=== PATIENT | male | born 1940 | race Caucasian/White ===

== ENCOUNTER 2017-06-05 15:04 | Inpatient (IN) ==
[2017-06-05] MEDS ORDERED: (Tiotropium Bromide [Spiriva Respimat] 4 GM) IH PRN (18:34)
[2017-06-05] MEDS ORDERED: Albuterol 2.5 MG/3 ML NEBULIZER IH PRN (18:34)
[2017-06-05] MEDS ORDERED: *HR* Glimepiride 2 MG TABLET PO SCH (21:00)
[2017-06-05] MEDS ORDERED: Torsemide 20 MG TABLET PO SCH (21:00)
[2017-06-05] MEDS: Metoprolol 100 MG TABLET PO SCH (22:24)
[2017-06-05] MEDS: Sulfamethoxazole/Trimeth DS 1 EACH TABLET PO SCH (22:24)
[2017-06-06 05:42] LABS: Basophils % 0.3 %; Eosinophils # 0.3 K/mcL (0.0-0.6); Eosinophils % 3.2 %; Hematocrit 39.1 % (37.5-50.1); Hemoglobin 12.9 g/dL (12.9-16.9); Immature Granulocytes % 0.8 % (0-4); Lymphocytes # 1.4 K/mcL (0.6-4.6); Lymphocytes % 16.2 %; Mean Corpuscular Hemoglobin 28.4 pg (28.0-33.3); Mean Corpuscular Volume 85.9 fL (83.0-100.0); Monocytes # 0.6 K/mcL (0.0-1.3); Monocytes % 6.5 %; Neutrophils # 6.4 K/mcL (1.6-8.9); Platelet Count 179 K/mcL (140-400); Red Blood Count 4.55 M/mcL (4.19-5.50); Red Cell Distribution Width 14.5 % (11.5-14.5)
[2017-06-06 05:55] LABS: Calcium 8.9 mg/dL (8.6-10.8); Potassium 3.5 mEq/L (3.5-4.5); Prothrombin Time 11.1 Seconds (9.4-12.1)
[2017-06-06] MEDS: *HR* Glimepiride 2 MG TABLET PO SCH (09:08)
[2017-06-06] MEDS: Sulfamethoxazole/Trimeth DS 1 EACH TABLET PO SCH ×2 (09:08→22:30)
[2017-06-06] MEDS: Torsemide 20 MG TABLET PO SCH ×2 (09:08→17:49)
[2017-06-06] MEDS: FLUoxetine HCl 10 MG CAPSULE PO SCH (09:08)
[2017-06-06] MEDS: Metoprolol 100 MG TABLET PO SCH ×2 (09:08→22:30)
[2017-06-06] MEDS: Losartan/HCTZ 50-12.5 TABLET PO SCH (09:09)
--- NOTE | 2017-06-06 11:15 | Internal Med History&Physical ---
Date of Encounter: 06/06/17 Time of Encounter: 11:10 Assessment and Plan (1) CVA (cerebral vascular accident) Current visit: Yes Status: Acute Patient's here for rehabilitation after having weakness to the right side. 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 (2) HTN (hypertension) Current visit: Yes Status: Acute Follow closely the blood pressure which is controlled to multiple Qualifiers: Hypertension type: essential hypertension Qualified Code(s): I10 - Essential (primary) hypertension (3) COPD (chronic obstructive pulmonary disease) Current visit: Yes Status: Acute Qualifiers: COPD type: emphysema Emphysema type: panlobular Qualified Code(s): J43.1 - Panlobular emphysema (4) Lumbar stenosis Current visit: No Status: Chronic By history Qualifiers: Qualified Code(s): M48.061 - Spinal stenosis, lumbar region without neurogenic claudication Internal Medicine - H&P: HPI Chief complaint: Patient was transferred here from the acute facility for rehabilitation sec Admitted From: Hospital to Hospital Transfer Plans for Post Hospital Care: Transfer [employer] 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 Storey is a 77 year old male who was transferred to [facility] rehabilitation unit status post CVA. On 1030 patient developed right mild upper extremity lower extremity weakness and presented to [facility] where head CT showed left thalamic hemorrhage. He was then transferred to [facility]. Repeat scan 12 hours was stable and after 24 hours monitor he was transferred to the neurology inpatient service. He was restarted on his home meds including blood pressure medication at OT PT evaluations. It was recommended then that extended-care facility placement be done for rehabilitation. He was started on fluoxetine 10 mg for stroke recovery and mood changes. Apparently at home CPAP and had refused it in the hospital. He will be seen PT OT TR and speech. Past Med Surg Social Fam HX - Past Medical History Medical history: arthritis, COPD, diabetes, dialysis, hyperlipidemia, hypertension Psychiatric history: no psych history - Past Surgical History Surgical History: other - Social History Smoking Status: Former smoker Smokeless Tobacco Status: No Alcohol use: rarely Drug use: none - Family History Mother Living Status: Age at : 66 Cause of : colon cancer Hx Family Cardiac Disorders: Yes Hx Family Cancer: Yes Internal Medicine - H&P: Meds Albuterol Neb [Proventil Neb] 2.5 mg IH Q4HR PRN 03/16/15 [History] Allopurinol [Zyloprim] 300 mg PO BID 03/16/15 [History] Glimepiride [Amaryl] 2 mg PO BID 03/16/15 [History] Losartan/Hydrochlorothiazide [Hyzaar 100-25 Tablet] 1 each PO DAILY 03/16/15 [ History] Metoprolol [Lopressor] 100 mg PO BID 03/16/15 [History] Tiotropium [place] [Spiriva Respimat] 4 gm IH DAILY PRN 03/16/15 [History] 3 Allergy/AdvReac Type Severity Reaction Status Date / Time pioglitazone [From Actos] AdvReac Mild Palpitation Verified 03/16/15 06:43 s All Systems PM: A 10-system review of systems was performed and is negative for pertinent findings except as documented above in the HPI. - Constitutional Constitutional: fever(s), falls, weakness, no anorexia, no chills, no excessive sweating, no fatigue - EENT Eyes: no blurry vision, no change in vision, no decreased night vision, no diplopia, no loss of peripheral vision Additional comments: No visual disturbances noted Ears: as per HPI Nose, mouth and throat: as per HPI, no bleeding gums, no change in voice, no dry mouth, no dysphagia, no facial pain, no lip swelling, no mouth lesions, no mouth pain, no nasal congestion, no neck pain, no nose pain - Breasts Additional comments: Not applicable - Cardiovascular Cardiovascular ROS IM: no chest pain, no claudication, no dyspnea, no dyspnea on exertion - Respiratory Respiratory: no cough, no dyspnea, no hemoptysis, no dyspnea on exertion - Gastrointestinal Gastrointestinal: no abdominal pain, no belching, no bloating, no change in bowel habits, no change in stool character, no constipation, no dyspepsia - Genitourinary Genitourinary ROS male: no difficulty urinating, no dysuria, no flank pain, no genital lesions, no genital pain, no hematuria, no nocturia, no testicular pain - Musculoskeletal Musculoskeletal ROS IM: no arthralgias, no back pain, no deformity, no joint swelling, no myalgias, no numbness - Integumentary Integumentary IM: no erythema, no pruritus, no rash, no sores, no unusual bruising - Neurological Neurological ROS: abnormal gait, focal weakness, lack of coordination, weakness , no numbness, no paresthesias - Psychiatric Psychiatric: as per HPI - Endocrine Endocrine IM: fatigue, no cold intolerance, no deeping of the voice, no excessive sweating, no flushing, no heat intolerance, no polydipsia, no polyphagia, no polyuria - Hematologic/Lymphatic Hematologic/Lymphatic: no easy bleeding, no easy bruising, no lymphadenopathy - Allergic/Immunologic Allergic/Immunologic: no tongue swelling, no throat swelling, no itchy eyes, no seasonal rhinorrhea, no uticaria - Constitutional Vitals: Temp Pulse Resp BP Pulse Ox 98.0 F 73 18 112/72 92 06/06/17 07:26 06/06/17 07:26 06/06/17 07:26 06/06/17 07:26 06/06/17 07:26 - Head Head exam: Present: atraumatic, normal inspection, normocephalic - Neck Neck exam general surgery: Present: supple, trachea midline. Absent: lymphadenopathy - Respiratory Respiratory exam: Present: CTAB. Absent: accessory muscle use, rales, rhonchi, wheezes - Cardiovascular Cardiovascular exam: Present: RRR, +S1, +S2. Absent: diastolic murmur, gallop, rubs, systolic murmur - GI/Abdominal GI/Abdominal exam: Present: normal bowel sounds, soft, no peritoneal signs. Absent: distended, tenderness Internal Med - H&P Results - Labs CBC & Chem 7: 06/06/17 05:25 06/06/17 05:25 Labs: Short CBC 06/06/17 Range/Units 05:25 WBC 8.8 (4.3-11.1) K/mcL Hgb 12.9 (12.9-16.9) g/dL Hct 39.1 (37.5-50.1) % Plt Count 179 (140-400) K/mcL Neutrophils # 6.4 (1.6-8.9) K/mcL BMP 06/06/17 05:25 Sodium 139 Potassium 3.5 Chloride 98 Carbon Dioxide 31 H BUN 52 H Creatinine 1.92 H Glucose 132 H Calcium 8.9 Little bit of chronic renal failure noted - VTE Documentation of Mechanical Device: Graduated compression elastic hosiery
[2017-06-07] MEDS: Torsemide 20 MG TABLET PO SCH ×2 (09:26→17:35)
[2017-06-07] MEDS: *HR* OxyCODONE/APAP 5/325 TABLET PO PRN (09:26)
[2017-06-07] MEDS: Sulfamethoxazole/Trimeth DS 1 EACH TABLET PO SCH ×2 (09:26→21:13)
[2017-06-07] MEDS: *HR* Glimepiride 2 MG TABLET PO SCH (09:26)
[2017-06-07] MEDS: FLUoxetine HCl 10 MG CAPSULE PO SCH (09:26)
[2017-06-07] MEDS: Losartan/HCTZ 50-12.5 TABLET PO SCH (09:26)
[2017-06-07] MEDS: Metoprolol 100 MG TABLET PO SCH ×2 (09:26→21:13)
--- NOTE | 2017-06-07 14:05 | Psychological Evaluation ---
Date of Encounter: 06/07/17 Time of Encounter: 10:00 History of Present Illness History of present illness: Mr. Storey is a 77 year old male who sustained an intrathalamic bleed. Imaging revealed cerebral infarction secondary to trombosis of the right cerebral artery. Past Medical History - Psychiatric History Psychiatric history: Reports: no psych history (PMH includes HTN, COPD and lumbar stenosis. ) Home Medications and Allergies Albuterol Neb [Proventil Neb] 2.5 mg IH Q4HR PRN 03/16/15 [History] Allopurinol [Zyloprim] 300 mg PO BID 03/16/15 [History] Glimepiride [Amaryl] 2 mg PO BID 03/16/15 [History] Losartan/Hydrochlorothiazide [Hyzaar 100-25 Tablet] 1 each PO DAILY 03/16/15 [ History] Metoprolol [Lopressor] 100 mg PO BID 03/16/15 [History] Tiotropium [place] [Spiriva Respimat] 4 gm IH DAILY PRN 03/16/15 [History] 3 Allergy/AdvReac Type Severity Reaction Status Date / Time pioglitazone [From Actos] AdvReac Mild Palpitation Verified 03/16/15 06:43 s Social History - Social History Social History: The patient has been for 57 years. He was formerly employed in [employer] and is now retired. Cognitive/Emotional Assessment - Cognitive Ability Abstract Thinking Ability: No Deficits Noted (The patient was alert and oriented. Recent and remote memories were intact. Reasoning and problem solving appeared adequate for the demands of the rehab setting.) Assessment & Plan - Prognosis Prognosis: Good (The patient apppears well adjusted to the demands of the rehab program. He denies depression. No further intervention is required at this time.)
--- NOTE | 2017-06-07 14:46 | Internal Med Progress Note ---
Date of Encounter: 06/07/17 Time of Encounter: 14:45 - Assessment and plan (1) CVA (cerebral vascular accident) Current Visit: Yes Status: Acute Assessment and plan: Patient's here receiving PT OT TR and speech. 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 (2) HTN (hypertension) Current Visit: Yes Status: Acute Qualifiers: Hypertension type: essential hypertension Qualified Code(s): I10 - Essential (primary) hypertension (3) COPD (chronic obstructive pulmonary disease) Current Visit: Yes Status: Acute Qualifiers: COPD type: emphysema Emphysema type: panlobular Qualified Code(s): J43.1 - Panlobular emphysema (4) Lumbar stenosis Current Visit: No Status: Chronic Assessment and plan: Noted by history Qualifiers: Qualified Code(s): M48.061 - Spinal stenosis, lumbar region without neurogenic claudication - Time Spent With Patient less than 15 minutes - Subjective Interval history: Isaac think is doing rather well. He is cooperating he is alert most of the time and the testing that was done by speech for cognitive went pretty well that along with Dr. De La Torre. - Constitutional Vitals: Temp Pulse Resp BP Pulse Ox 96.9 F L 66 16 140/78 94 06/07/17 07:38 06/07/17 07:38 06/07/17 07:38 06/07/17 07:38 06/07/17 07:38 - Head Head exam: Present: atraumatic, normal inspection, normocephalic - Neck Neck exam general surgery: Present: supple, trachea midline. Absent: lymphadenopathy - Respiratory Respiratory exam: Present: CTAB. Absent: accessory muscle use, rales, rhonchi, wheezes - Cardiovascular Cardiovascular exam: Present: RRR, +S1, +S2. Absent: diastolic murmur, gallop, rubs, systolic murmur - GI/Abdominal GI/Abdominal exam: Present: normal bowel sounds, soft, no peritoneal signs. Absent: distended, tenderness Internal Medicine: Result - Labs CBC & Chem 7: 06/06/17 05:25 06/06/17 05:25 Labs: renal failure as noted otherwise lab is acceptable - ABG Interpretation ABG results: PT/INR, D-dimer PT 11.1 Seconds (9.4-12.1) 06/06/17 05:25 - VTE Documentation of Mechanical Device: Graduated compression elastic hosiery Consult Discharge Plan - Plan Referrals: Luisana Mejia, PAC [Primary Care Provider] -
[2017-06-07] MEDS ORDERED: MOM Conc 10 ML UD.LIQ PO PRN (17:27)
[2017-06-08] MEDS: *HR* OxyCODONE/APAP 5/325 TABLET PO PRN (02:19)
[2017-06-08] MEDS: Torsemide 20 MG TABLET PO SCH ×2 (09:36→16:58)
[2017-06-08] MEDS: FLUoxetine HCl 10 MG CAPSULE PO SCH (09:36)
[2017-06-08] MEDS: Losartan/HCTZ 50-12.5 TABLET PO SCH (09:37)
[2017-06-08] MEDS: *HR* Glimepiride 2 MG TABLET PO SCH (09:37)
[2017-06-08] MEDS: Sulfamethoxazole/Trimeth DS 1 EACH TABLET PO SCH ×2 (09:37→20:11)
[2017-06-08] MEDS: Metoprolol 100 MG TABLET PO SCH ×2 (09:37→20:13)
[2017-06-09] MEDS: FLUoxetine HCl 10 MG CAPSULE PO SCH (08:34)
[2017-06-09] MEDS: Losartan/HCTZ 50-12.5 TABLET PO SCH (08:35)
[2017-06-09] MEDS: Torsemide 20 MG TABLET PO SCH ×2 (08:35→17:23)
[2017-06-09] MEDS: Metoprolol 100 MG TABLET PO SCH ×2 (08:35→20:47)
[2017-06-09] MEDS: *HR* Glimepiride 2 MG TABLET PO SCH (08:35)
[2017-06-09] MEDS: Sulfamethoxazole/Trimeth DS 1 EACH TABLET PO SCH ×2 (08:35→20:46)
--- NOTE | 2017-06-09 14:21 | Internal Med Progress Note ---
Date of Encounter: 06/15/17 Time of Encounter: 14:19 - Assessment and plan (1) CVA (cerebral vascular accident) Current Visit: Yes Status: Acute Assessment and plan: H has CVA the reason for his rehabilitation. Qualifiers: CVA mechanism: embolism Precerebral and cerebral artery: middle cerebral artery Laterality of affected vessel: right Qualified Code(s): I63.411 - Cerebral infarction due to embolism of right middle cerebral artery (2) HTN (hypertension) Current Visit: Yes Status: Acute Assessment and plan: The pressure is control Qualifiers: Hypertension type: essential hypertension Qualified Code(s): I10 - Essential (primary) hypertension (3) COPD (chronic obstructive pulmonary disease) Current Visit: Yes Status: Acute Assessment and plan: By history currently not a Qualifiers: COPD type: emphysema Emphysema type: panlobular Qualified Code(s): J43.1 - Panlobular emphysema (4) Lumbar stenosis Current Visit: No Status: Chronic Assessment and plan: By history Qualifiers: Qualified Code(s): M48.061 - Spinal stenosis, lumbar region without neurogenic claudication - Time Spent With Patient less than 15 minutes - Subjective Interval history: Isaac think is doing rather well. He is cooperating he is alert most of the time and the testing that was done by speech for cognitive went pretty well that along with Dr. Pinzon - Constitutional Vitals: Temp Pulse Resp BP Pulse Ox 97.7 F 70 16 122/66 90 06/09/17 07:02 06/09/17 07:02 06/09/17 07:02 06/09/17 07:02 06/09/17 07:02 - Head Head exam: Present: atraumatic, normal inspection, normocephalic - Neck Neck exam general surgery: Present: supple, trachea midline. Absent: lymphadenopathy - Respiratory Respiratory exam: Present: CTAB. Absent: accessory muscle use, rales, rhonchi, wheezes - Cardiovascular Cardiovascular exam: Present: RRR, +S1, +S2. Absent: diastolic murmur, gallop, rubs, systolic murmur - GI/Abdominal GI/Abdominal exam: Present: normal bowel sounds, soft, no peritoneal signs. Absent: distended, tenderness Internal Medicine: Result - Labs CBC & Chem 7: 06/12/17 05:15 06/14/17 05:35 Labs: Labs stable - ABG Interpretation ABG results: PT/INR, D-dimer PT 11.1 Seconds (9.4-12.1) 06/06/17 05:25 - VTE Documentation of Mechanical Device: Graduated compression elastic hosiery Consult Discharge Plan - Plan Referrals: Luisana Mejia, PAC [Primary Care Provider] -
--- NOTE | 2017-06-09 14:24 | Internal Med Progress Note ---
Date of Encounter: 06/09/17 Time of Encounter: 14:22 - Assessment and plan (1) CVA (cerebral vascular accident) Current Visit: Yes Status: Acute Assessment and plan: CVA Reason for his admission to the rehabilitation. 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 (2) HTN (hypertension) Current Visit: Yes Status: Acute Assessment and plan: Her pressures well controlled Qualifiers: Hypertension type: essential hypertension Qualified Code(s): I10 - Essential (primary) hypertension (3) COPD (chronic obstructive pulmonary disease) Current Visit: Yes Status: Acute Qualifiers: COPD type: emphysema Emphysema type: panlobular Qualified Code(s): J43.1 - Panlobular emphysema (4) Lumbar stenosis Current Visit: No Status: Chronic Assessment and plan: By history Qualifiers: Qualified Code(s): M48.061 - Spinal stenosis, lumbar region without neurogenic claudication - Time Spent With Patient less than 15 minutes - Subjective Interval history: Patient's only complaint really suspect bowels and so going give him Colace and milk of magnesia at bedtime - Constitutional Vitals: Temp Pulse Resp BP Pulse Ox 97.7 F 70 16 122/66 90 06/09/17 07:02 06/09/17 07:02 06/09/17 07:02 06/09/17 07:02 06/09/17 07:02 - Head Head exam: Present: atraumatic, normal inspection, normocephalic - Neck Neck exam general surgery: Present: supple, trachea midline. Absent: lymphadenopathy - Respiratory Respiratory exam: Present: CTAB. Absent: accessory muscle use, rales, rhonchi, wheezes - Cardiovascular Cardiovascular exam: Present: RRR, +S1, +S2. Absent: diastolic murmur, gallop, rubs, systolic murmur - GI/Abdominal GI/Abdominal exam: Present: normal bowel sounds, soft, no peritoneal signs. Absent: distended, tenderness Internal Medicine: Result - Labs CBC & Chem 7: 06/06/17 05:25 06/06/17 05:25 Labs: Watch renal function but he does have chronic changes. - ABG Interpretation ABG results: PT/INR, D-dimer PT 11.1 Seconds (9.4-12.1) 06/06/17 05:25 - VTE Documentation of Mechanical Device: Graduated compression elastic hosiery Consult Discharge Plan - Plan Referrals: Luisana Mejia, PAC [Primary Care Provider] -
[2017-06-09] MEDS ORDERED: MOM Conc 10 ML UD.LIQ PO PRN (14:42)
[2017-06-09] MEDS ORDERED: MOM Conc 10 ML UD.LIQ PO SCH (21:00)
[2017-06-10] MEDS: Torsemide 20 MG TABLET PO SCH (08:31)
[2017-06-10] MEDS: Losartan/HCTZ 50-12.5 TABLET PO SCH (08:31)
[2017-06-10] MEDS: Metoprolol 100 MG TABLET PO SCH ×2 (08:31→21:54)
[2017-06-10] MEDS: FLUoxetine HCl 10 MG CAPSULE PO SCH (08:31)
[2017-06-10] MEDS: *HR* Glimepiride 2 MG TABLET PO SCH (08:32)
[2017-06-10] MEDS: Sulfamethoxazole/Trimeth DS 1 EACH TABLET PO SCH (08:32)
[2017-06-10 14:18] LABS: Calcium 9.3 mg/dL (8.6-10.8); Potassium 4.4 mEq/L (3.5-4.5)
--- NOTE | 2017-06-10 14:20 | Internal Med Progress Note ---
Date of Encounter: 06/10/17 Time of Encounter: 14:00 - Assessment and plan (1) JORDY (acute kidney injury) Current Visit: Yes Status: Acute Assessment and plan: - Cr around 1 at , but 1.92 on 06/06 here. Will repeat BMP right now and manage accordingly. - Avoid nephrotoxins; will hold torsemide and losartan for now. (2) CVA (cerebral vascular accident) Current Visit: Yes Status: Acute Assessment and plan: Reason for his admission to the rehabilitation. Continue to work with therapists. 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 Qualifiers: Hypertension type: essential hypertension Qualified Code(s): I10 - Essential (primary) hypertension (4) Constipation Current Visit: Yes Status: Acute Assessment and plan: Will switch MOM out and add Miralax daily prn. Qualifiers: Constipation type: other constipation type Qualified Code(s): K59.09 - Other constipation - Time Spent With Patient less than 15 minutes - Subjective Interval history: - Reports RLE weakness. - Does not like MOM; would like Miralax given insufficient BM. - Constitutional Vitals: Temp Pulse Resp BP Pulse Ox 97.7 F 69 16 118/70 90 06/10/17 07:27 06/10/17 07:27 06/10/17 07:27 06/10/17 07:27 06/10/17 07:27 Exam: Gen: A&Ox3, NAD. HEENT: NCAT. Neck: No palpable lymphadenopathy or thyromegaly. CV: Heart sounds somewhat distant, but overall RRR, S1S2. No murmur. Capillary refill < 2 seconds. Pulm: Breat sounds somewhat distant, but overall CTAB. Abd: (+)BS. NDNT. Neuro: Very slight weakness in RLE compared to LLE, but not by much. Skin: No rash. Ext: No pitting edema. Internal Medicine: Result - Labs CBC & Chem 7: 06/06/17 05:25 06/06/17 05:25 - ABG Interpretation ABG results: PT/INR, D-dimer PT 11.1 Seconds (9.4-12.1) 06/06/17 05:25 - VTE Documentation of Mechanical Device: Graduated compression elastic hosiery Consult Discharge Plan - Plan Referrals: Luisana Mejia, PAC [Primary Care Provider] -
[2017-06-10] MEDS: 0.9 % Sodium Chloride 1,000 ML IVC SCH ×2 (15:41→22:01)
[2017-06-11] MEDS: 0.9 % Sodium Chloride 1,000 ML IVC SCH ×3 (05:00→18:15)
[2017-06-11 05:33] LABS: Calcium 8.5 mg/dL (8.6-10.8); Potassium 3.9 mEq/L (3.5-4.5)
[2017-06-11] MEDS: FLUoxetine HCl 10 MG CAPSULE PO SCH (08:25)
[2017-06-11] MEDS: Metoprolol 100 MG TABLET PO SCH ×2 (08:25→20:40)
[2017-06-11] MEDS: *HR* Glimepiride 2 MG TABLET PO SCH (08:26)
[2017-06-11] MEDS: Sulfamethoxazole/Trimeth DS 1 EACH TABLET PO SCH (08:26)
--- NOTE | 2017-06-11 11:45 | Internal Med Progress Note ---
Date of Encounter: 06/11/17 Time of Encounter: 11:00 - Assessment and plan (1) JORDY (acute kidney injury) Current Visit: Yes Status: Acute Assessment and plan: - Cr around 1 at , but 1.92 on 06/06 and 3.64 yesterday here; MIVF started and Cr improving as of this morning. - FeUrea pending (urine already sent out), but likely pre-renal given improvement in Cr with hydration. - Avoid nephrotoxins; will hold torsemide and losartan for now. - Continue MIVF for now; also encouraged PO intake. - BMP tomorrow morning. (2) CVA (cerebral vascular accident) Current Visit: Yes Status: Acute Assessment and plan: Reason for his admission to the rehabilitation. Continue to work with therapists. 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 Qualifiers: Hypertension type: essential hypertension Qualified Code(s): I10 - Essential (primary) hypertension (4) Constipation Current Visit: Yes Status: Acute Assessment and plan: - Will schedule Miralax to BID for now; titrate to effect. - Continue Colace BID. Qualifiers: Constipation type: other constipation type Qualified Code(s): K59.09 - Other constipation - Subjective Interval history: - Feeling constipated. - Glad to know kidney functions are improving. - Constitutional Vitals: Temp Pulse Resp BP Pulse Ox 97.9 F 72 16 133/67 88 06/11/17 08:00 06/11/17 08:00 06/11/17 08:00 06/11/17 08:00 06/11/17 08:00 Exam: Gen: A&Ox3, NAD. HEENT: NCAT. Neck: No palpable lymphadenopathy or thyromegaly. CV: Heart sounds somewhat distant, but overall RRR, S1S2. No murmur. Capillary refill < 2 seconds. Pulm: Breat sounds somewhat distant, but overall CTAB. Abd: (+)BS. NDNT. Neuro: Very slight weakness in RLE compared to LLE, but not by much. Skin: No rash. Ext: No pitting edema. Internal Medicine: Result - Labs CBC & Chem 7: 06/06/17 05:25 06/11/17 05:10 Labs: BMP 06/10/17 06/11/17 13:50 05:10 Sodium 138 137 Potassium 4.4 3.9 Chloride 97 L 102 Carbon Dioxide 27 25 BUN 77 H 73 H Creatinine 3.64 H 3.14 H Glucose 88 66 L Calcium 9.3 8.5 L - ABG Interpretation ABG results: PT/INR, D-dimer PT 11.1 Seconds (9.4-12.1) 06/06/17 05:25 - VTE Documentation of Mechanical Device: Graduated compression elastic hosiery Consult Discharge Plan - Plan Referrals: Luisana Mejia, PAC [Primary Care Provider] -
[2017-06-12] MEDS: 0.9 % Sodium Chloride 1,000 ML IVC SCH ×4 (01:34→23:30)
[2017-06-12 05:47] LABS: Basophils # 0.1 K/mcL (0.0-0.2); Basophils % 0.6 %; Eosinophils # 0.2 K/mcL (0.0-0.6); Eosinophils % 2.5 %; Hematocrit 37.2 % (37.5-50.1); Hemoglobin 11.9 g/dL (12.9-16.9); Immature Granulocytes % 1.2 % (0-4); Lymphocytes # 1.6 K/mcL (0.6-4.6); Lymphocytes % 16.6 %; Mean Corpuscular Volume 87.5 fL (83.0-100.0); Mean Platelet Volume 9.8 fL (9.4-12.4); Monocytes # 0.8 K/mcL (0.0-1.3); Monocytes % 8.7 %; Neutrophils # 6.6 K/mcL (1.6-8.9); Platelet Count 184 K/mcL (140-400); Red Blood Count 4.25 M/mcL (4.19-5.50); Red Cell Distribution Width 14.8 % (11.5-14.5); Segmented Neutrophils % 70.4 %
[2017-06-12 05:56] LABS: Calcium 8.2 mg/dL (8.6-10.8); Potassium 4.4 mEq/L (3.5-4.5)
[2017-06-12] MEDS: FLUoxetine HCl 10 MG CAPSULE PO SCH (08:22)
[2017-06-12] MEDS: Metoprolol 100 MG TABLET PO SCH ×2 (08:22→21:22)
[2017-06-12] MEDS: *HR* Glimepiride 2 MG TABLET PO SCH (08:22)
[2017-06-12] MEDS: Sulfamethoxazole/Trimeth DS 1 EACH TABLET PO SCH (08:22)
[2017-06-13] MEDS: 0.9 % Sodium Chloride 1,000 ML IVC SCH ×2 (06:07→11:10)
[2017-06-13] MEDS: Torsemide 20 MG TABLET PO SCH ×2 (08:46→17:10)
[2017-06-13] MEDS: FLUoxetine HCl 10 MG CAPSULE PO SCH (08:46)
[2017-06-13] MEDS: Losartan/HCTZ 50-12.5 TABLET PO SCH (08:46)
[2017-06-13] MEDS: Sulfamethoxazole/Trimeth DS 1 EACH TABLET PO SCH (08:46)
[2017-06-13] MEDS: Metoprolol 100 MG TABLET PO SCH ×2 (08:46→20:16)
[2017-06-13] MEDS: *HR* Glimepiride 2 MG TABLET PO SCH (08:46)
--- NOTE | 2017-06-13 12:07 | Internal Med Progress Note ---
Date of Encounter: 06/13/17 Time of Encounter: 12:02 - Assessment and plan (1) CVA (cerebral vascular accident) Current Visit: Yes Status: Acute Assessment and plan: Patient's here for CVA. 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 (2) HTN (hypertension) Current Visit: Yes Status: Acute Assessment and plan: Personal labile but certainly it is tolerable at this point Qualifiers: Hypertension type: essential hypertension Qualified Code(s): I10 - Essential (primary) hypertension (3) COPD (chronic obstructive pulmonary disease) Current Visit: Yes Status: Acute Assessment and plan: Breathing seems stable at this point Qualifiers: COPD type: emphysema Emphysema type: panlobular Qualified Code(s): J43.1 - Panlobular emphysema (4) Lumbar stenosis Current Visit: No Status: Chronic Assessment and plan: By history Qualifiers: Qualified Code(s): M48.061 - Spinal stenosis, lumbar region without neurogenic claudication - Time Spent With Patient less than 15 minutes - Subjective Interval history: Patient's only complaint really suspect bowels and so going give him Colace and milk of magnesia at bedtime. Patient patient wore the IV stopped his BUN and creatinine of improved considerably and I will follow that. - Constitutional Vitals: Temp Pulse Resp BP Pulse Ox 97.5 F L 91 16 177/73 92 06/12/17 19:00 06/12/17 19:00 06/12/17 19:00 06/12/17 19:00 06/12/17 19:00 - Head Head exam: Present: atraumatic, normal inspection, normocephalic - Neck Neck exam general surgery: Present: supple, trachea midline. Absent: lymphadenopathy - Respiratory Respiratory exam: Present: CTAB. Absent: accessory muscle use, rales, rhonchi, wheezes - Cardiovascular Cardiovascular exam: Present: RRR, +S1, +S2. Absent: diastolic murmur, gallop, rubs, systolic murmur - GI/Abdominal GI/Abdominal exam: Present: normal bowel sounds, soft, no peritoneal signs. Absent: distended, tenderness Internal Medicine: Result - Labs CBC & Chem 7: 06/12/17 05:15 06/12/17 05:15 Labs: As noted the BUN and creatinine are up this chronic - ABG Interpretation ABG results: PT/INR, D-dimer PT 11.1 Seconds (9.4-12.1) 06/06/17 05:25 - VTE Documentation of Mechanical Device: Graduated compression elastic hosiery Consult Discharge Plan - Plan Referrals: Luisana Mejia, PAC [Primary Care Provider] -
[2017-06-14 05:57] LABS: BUN/Creatinine Ratio 21 (6-26); Calcium 8.7 mg/dL (8.6-10.8); Carbon Dioxide 27 mEq/L (19-29); Chloride 107 mEq/L (98-109); Glucose 96 mg/dL (70-99); Osmolality,Calculated 294 (280-300); Sodium 140 mEq/L (136-145); eGFR For African Americans > 60 (> 60); eGFR For Non-African Americans > 60 (> 60)
[2017-06-14 06:07] LABS: Blood Urea Nitrogen 25 mg/dL (8-26)
[2017-06-14] MEDS: *HR* Glimepiride 2 MG TABLET PO SCH (08:29)
[2017-06-14] MEDS: Losartan/HCTZ 50-12.5 TABLET PO SCH (08:30)
[2017-06-14] MEDS: FLUoxetine HCl 10 MG CAPSULE PO SCH (08:30)
[2017-06-14] MEDS: Metoprolol 100 MG TABLET PO SCH ×2 (08:30→21:28)
[2017-06-14] MEDS: Torsemide 20 MG TABLET PO SCH ×3 (08:30→18:37)
[2017-06-14] MEDS ORDERED: Mag Hydrox/Al Hydrox/Simeth 30 ML UDC PO PRN (12:04)
--- NOTE | 2017-06-14 12:08 | Rehab Psychology Progress Note ---
Date of Encounter: 06/14/17 Time of Encounter: 10:30 Subjective - Symptoms Symptoms: The patient appears slowed. Somewhat tearful. Processing speed slow. 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 Storey is experiencing grief secondary to the passing of his great daughter, The child was still born at 8 months. Mr. Storey is also concerned about effects of his recent stroke. Procedures - Session Time Session Start Time: 10:30 Session Stop Time: 11:00
--- NOTE | 2017-06-14 13:50 | Physical Med Progress Note ---
Date of Encounter: 06/14/17 Time of Encounter: 13:45 Physical Medicine-PN: Subj Interval history: PMR PCC Note Patient was very tearful this am. He is grieving the loss of a grandchild. Patient is SBA/CGA for transfers. He is ambulating 150 feet with walker with short step through. He is SBA for ADLs. Patient is resistant to speech therapy. Plan to continue PT/OT/TR/ST. MIKE 06/21/17. - Constitutional Vitals: Vital Signs Temp Pulse Resp BP Pulse Ox 06/13/17 19:08 97.0 F L 73 19 167/83 93 Intake and Output 06/13/17 06/14/17 06/14/17 23:59 07:59 15:59 Intake Total 240 / 240 200 / 200 240 / 240 Output Total 1420 / 1420 400 / 400 Balance -1180 / -1180 -200 / -200 240 / 240 Intake: Oral 240 / 240 200 / 200 240 / 240 Output: Urine 1170 / 1170 400 / 400 Catheter 250 / 250 Other: Meal Dinner Breakfast Percent of Meal Consumed 100% 100% Blood Glucose* 158 101 Physical Medicine-PN: Obj Data - Labs CBC & Chem 7: 06/12/17 05:15 06/14/17 05:35 Labs: Laboratory Results - last 24 hr 06/13/17 06/13/17 06/14/17 15:57 19:34 05:35 Sodium 140 Potassium 4.0 Chloride 107 Carbon Dioxide 27 BUN 25 D Creatinine 1.17 Est GFR ( Amer) > 60 Est GFR (Non-Af Amer) > 60 BUN/Creatinine Ratio 21 Glucose 96 POC Glucose 80 158 H Calculated Osmolality 294 Calcium 8.7 06/14/17 07:48 Sodium Potassium Chloride Carbon Dioxide BUN Creatinine Est GFR ( Amer) Est GFR (Non-Af Amer) BUN/Creatinine Ratio Glucose POC Glucose 101 H Calculated Osmolality Calcium - ABG Interpretation ABG results: PT/INR, D-dimer PT 11.1 Seconds (9.4-12.1) 06/06/17 05:25 - VTE Documentation of Mechanical Device: Graduated compression elastic hosiery Consult Discharge Plan - Plan Referrals: Luisana Mejia, PAC [Primary Care Provider] -
[2017-06-14] MEDS: Famotidine 20 MG TABLET PO SCH (21:29)
[2017-06-15] MEDS: Famotidine 20 MG TABLET PO SCH ×2 (07:33→21:26)
[2017-06-15] MEDS: Losartan/HCTZ 50-12.5 TABLET PO SCH (07:33)
[2017-06-15] MEDS: Metoprolol 100 MG TABLET PO SCH ×2 (07:33→21:26)
[2017-06-15] MEDS: *HR* Glimepiride 2 MG TABLET PO SCH (07:34)
[2017-06-15] MEDS: Torsemide 20 MG TABLET PO SCH ×2 (07:35→16:50)
--- NOTE | 2017-06-15 14:02 | Internal Med Progress Note ---
Date of Encounter: 06/15/17 Time of Encounter: 14:00 - Assessment and plan (1) CVA (cerebral vascular accident) Current Visit: Yes Status: Acute Assessment and plan: Patient's here for rehabilitation for CVA. 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 (2) HTN (hypertension) Current Visit: Yes Status: Acute Assessment and plan: Blood pressure well controlled Qualifiers: Hypertension type: essential hypertension Qualified Code(s): I10 - Essential (primary) hypertension (3) COPD (chronic obstructive pulmonary disease) Current Visit: Yes Status: Acute Assessment and plan: Breathing is stable at the moment Qualifiers: COPD type: emphysema Emphysema type: panlobular Qualified Code(s): J43.1 - Panlobular emphysema (4) Lumbar stenosis Current Visit: No Status: Chronic Assessment and plan: By history Qualifiers: Qualified Code(s): M48.061 - Spinal stenosis, lumbar region without neurogenic claudication - Time Spent With Patient less than 15 minutes - Subjective Interval history: iv removed. doing very well. - Constitutional Vitals: Temp Pulse Resp BP Pulse Ox 98.7 F 66 18 150/68 93 06/15/17 07:02 06/15/17 07:02 06/15/17 07:02 06/15/17 07:02 06/15/17 07:02 - Head Head exam: Present: atraumatic, normal inspection, normocephalic - Respiratory Respiratory exam: Present: CTAB. Absent: accessory muscle use, rales, rhonchi, wheezes - Cardiovascular Cardiovascular exam: Present: RRR, +S1, +S2. Absent: diastolic murmur, gallop, rubs, systolic murmur - GI/Abdominal GI/Abdominal exam: Present: normal bowel sounds, soft, no peritoneal signs. Absent: distended, tenderness Internal Medicine: Result - Labs CBC & Chem 7: 06/12/17 05:15 06/14/17 05:35 Labs: Lab is stable - ABG Interpretation ABG results: PT/INR, D-dimer PT 11.1 Seconds (9.4-12.1) 06/06/17 05:25 - VTE Documentation of Mechanical Device: Graduated compression elastic hosiery Consult Discharge Plan - Plan Referrals: Luisana Mejia, PAC [Primary Care Provider] -
[2017-06-15] MEDS ORDERED: predniSONE 20 MG TABLET PO ONE (15:37)
[2017-06-15] MEDS: FLUoxetine HCl 10 MG CAPSULE PO SCH (16:50)
[2017-06-16] MEDS: Metoprolol 100 MG TABLET PO SCH ×2 (08:22→20:55)
[2017-06-16] MEDS: Famotidine 20 MG TABLET PO SCH ×2 (08:22→20:55)
[2017-06-16] MEDS: Torsemide 20 MG TABLET PO SCH ×2 (08:23→18:55)
[2017-06-16] MEDS: FLUoxetine HCl 10 MG CAPSULE PO SCH (08:23)
[2017-06-16] MEDS: Losartan/HCTZ 50-12.5 TABLET PO SCH (08:23)
[2017-06-16] MEDS: *HR* Glimepiride 2 MG TABLET PO SCH (08:23)
--- NOTE | 2017-06-16 14:38 | Internal Med Progress Note ---
Date of Encounter: 06/16/17 Time of Encounter: 14:36 - Assessment and plan (1) CVA (cerebral vascular accident) Current Visit: Yes Status: Acute Qualifiers: CVA mechanism: embolism Precerebral and cerebral artery: middle cerebral artery Laterality of affected vessel: right Qualified Code(s): I63.411 - Cerebral infarction due to embolism of right middle cerebral artery (2) HTN (hypertension) Current Visit: Yes Status: Acute Qualifiers: Hypertension type: essential hypertension Qualified Code(s): I10 - Essential (primary) hypertension (3) COPD (chronic obstructive pulmonary disease) Current Visit: Yes Status: Acute Qualifiers: COPD type: emphysema Emphysema type: panlobular Qualified Code(s): J43.1 - Panlobular emphysema (4) Lumbar stenosis Current Visit: No Status: Chronic Qualifiers: Qualified Code(s): M48.061 - Spinal stenosis, lumbar region without neurogenic claudication - Subjective Interval history: Mr. Storey is bothered by his gout. I had a little steroid see if that helps. And he does have something for pain should become necessary. He complains of most of the discomfort right now is in his right forefoot - Constitutional Vitals: Temp Pulse Resp BP Pulse Ox 98.3 F 80 18 144/78 90 06/16/17 07:11 06/16/17 07:11 06/16/17 07:11 06/16/17 07:11 06/16/17 07:11 - Head Head exam: Present: atraumatic, normal inspection, normocephalic - Neck Neck exam general surgery: Present: supple, trachea midline. Absent: lymphadenopathy - Respiratory Respiratory exam: Present: CTAB. Absent: accessory muscle use, rales, rhonchi, wheezes - Cardiovascular Cardiovascular exam: Present: RRR, +S1, +S2. Absent: diastolic murmur, gallop, rubs, systolic murmur - GI/Abdominal GI/Abdominal exam: Present: normal bowel sounds, soft, no peritoneal signs. Absent: distended, tenderness - Expanded Lower Extremities Exam Foot/Toe exam: Present: normal inspection (There is no redness or swelling) Internal Medicine: Result - Labs CBC & Chem 7: 06/12/17 05:15 06/14/17 05:35 - ABG Interpretation ABG results: PT/INR, D-dimer PT 11.1 Seconds (9.4-12.1) 06/06/17 05:25 - VTE Documentation of Mechanical Device: Graduated compression elastic hosiery Consult Discharge Plan - Plan Referrals: Luisana Mejia, PAC [Primary Care Provider] -
[2017-06-17] MEDS: Losartan/HCTZ 50-12.5 TABLET PO SCH (09:44)
[2017-06-17] MEDS: Famotidine 20 MG TABLET PO SCH ×2 (09:45→21:09)
[2017-06-17] MEDS: Metoprolol 100 MG TABLET PO SCH ×2 (09:45→21:09)
[2017-06-17] MEDS: *HR* Glimepiride 2 MG TABLET PO SCH (09:45)
[2017-06-17] MEDS: Torsemide 20 MG TABLET PO SCH ×2 (09:45→17:12)
[2017-06-17] MEDS: FLUoxetine HCl 10 MG CAPSULE PO SCH (09:45)
--- NOTE | 2017-06-17 09:53 | Internal Med Progress Note ---
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 (3) HTN (hypertension) Current Visit: Yes Status: Acute Assessment and plan: stable Qualifiers: Hypertension type: essential hypertension Qualified Code(s): I10 - Essential (primary) hypertension (4) JORDY (acute kidney injury) Current Visit: Yes Status: Chronic Assessment and plan: resolved - Subjective Interval history: doing fine no acute issues planning to leave in few days by mid week no acute issues - Constitutional Vitals: Temp Pulse Resp BP Pulse Ox 97.0 F L 66 16 137/80 92 06/17/17 07:00 06/17/17 07:00 06/17/17 07:00 06/17/17 07:00 06/17/17 07:00 General appearance: Present: A&O X 3, pleasant, answers questions appropriately. Absent: no acute distress - Head Head exam: Present: atraumatic - Neck Neck exam general surgery: Present: supple. Absent: tenderness, nuchal rigidity - Respiratory Respiratory exam: Present: CTAB. Absent: rales, respiratory distress, rhonchi, wheezes, tachypnea - Cardiovascular Cardiovascular exam: Present: RRR, +S1, +S2. Absent: diastolic murmur, irregular rhythm, JVD, systolic murmur, tachycardia - GI/Abdominal GI/Abdominal exam: Present: normal bowel sounds. Absent: distended, guarding, rebound, rigid, soft, tenderness - Extremities Exam Extremities exam: Absent: pedal edema, tenderness - Neurological Exam Neurological exam: Present: CN II-XII intact, oriented X3, no focal deficits. Absent: facial droop, speech deficit Additional comments: strength is almost equal on both upper and lower limbs Internal Medicine: Result - Labs CBC & Chem 7: 11/13/17 05:15 06/14/17 05:35 - ABG Interpretation ABG results: PT/INR, D-dimer PT 11.1 Seconds (9.4-12.1) 06/06/17 05:25 - VTE Documentation of Mechanical Device: Graduated compression elastic hosiery Consult Discharge Plan - Plan Referrals: Luisana Mejia, PAC [Primary Care Provider] -
[2017-06-18] MEDS: Metoprolol 100 MG TABLET PO SCH ×2 (08:09→20:22)
[2017-06-18] MEDS: Famotidine 20 MG TABLET PO SCH ×2 (08:09→20:22)
[2017-06-18] MEDS: Torsemide 20 MG TABLET PO SCH ×2 (08:09→16:58)
[2017-06-18] MEDS: Losartan/HCTZ 50-12.5 TABLET PO SCH (08:09)
[2017-06-18] MEDS: FLUoxetine HCl 10 MG CAPSULE PO SCH (08:10)
[2017-06-18] MEDS: *HR* Glimepiride 2 MG TABLET PO SCH (08:10)
--- NOTE | 2017-06-18 08:35 | Internal Med Progress Note ---
Date of Encounter: 06/18/17 Time of Encounter: 08:32 - Assessment and plan (1) COPD (chronic obstructive pulmonary disease) Current Visit: Yes Status: Chronic Assessment and plan: stable baseline no new complains Qualifiers: COPD type: emphysema Emphysema type: panlobular Qualified Code(s): J43.1 - Panlobular emphysema (2) CVA (cerebral vascular accident) Current Visit: Yes Status: Acute Assessment and plan: stable getting his rehab and read to be discharged no new change Qualifiers: CVA mechanism: embolism Precerebral and cerebral artery: middle cerebral artery Laterality of affected vessel: right Qualified Code(s): I63.411 - Cerebral infarction due to embolism of right middle cerebral artery (3) HTN (hypertension) Current Visit: Yes Status: Resolved Assessment and plan: stable continue present medications Qualifiers: Hypertension type: essential hypertension Qualified Code(s): I10 - Essential (primary) hypertension (4) JORDY (acute kidney injury) Current Visit: Yes Status: Resolved Assessment and plan: level improved and resolved - Subjective Interval history: No new complains feels well feeling hungry no SOB chest pain or any other complains - Constitutional Vitals: Temp Pulse Resp BP Pulse Ox 97.3 F L 63 16 143/67 91 06/17/17 19:00 06/17/17 19:00 06/17/17 19:00 06/17/17 19:00 06/17/17 19:00 General appearance: Present: A&O X 3, pleasant, answers questions appropriately. Absent: no acute distress, severe distress - Head Head exam: Present: atraumatic - Eye Eye exam: Present: EOMI, PERRL. Absent: scleral icterus, conjuntiva pink, sclera anicteric Pupils: Present: PERRL - Neck Neck exam general surgery: Present: full ROM. Absent: nuchal rigidity, supple - Respiratory Respiratory exam: Present: CTAB. Absent: chest wall tenderness, decreased breath sounds, prolonged expiratory phase, respiratory distress, rhonchi, stridor, wheezes, tachypnea - Cardiovascular Cardiovascular exam: Present: RRR, +S1, +S2. Absent: diastolic murmur, irregular rhythm, JVD, rubs, systolic murmur, tachycardia - GI/Abdominal GI/Abdominal exam: Present: normal bowel sounds, soft. Absent: diminished bowel sounds, distended, firm, guarding, pulsatile mass, rebound, rigid - Extremities Exam Extremities exam: Absent: pedal edema, tenderness - Neurological Exam Neurological exam: Present: CN II-XII intact, oriented X3, strengths equal and symetr throughout. Absent: facial droop, speech deficit Additional comments: no new change Internal Medicine: Result - Labs CBC & Chem 7: 06/12/17 05:15 06/14/17 05:35 - ABG Interpretation ABG results: PT/INR, D-dimer PT 11.1 Seconds (9.4-12.1) 06/06/17 05:25 - VTE Documentation of Mechanical Device: Graduated compression elastic hosiery Consult Discharge Plan - Plan Referrals: Luisana Mejia, PAC [Primary Care Provider] -
[2017-06-19 06:14] LABS: Basophils % 0.3 %; Eosinophils # 0.3 K/mcL (0.0-0.6); Eosinophils % 3.3 %; Hematocrit 41.6 % (37.5-50.1); Hemoglobin 13.4 g/dL (12.9-16.9); Lymphocytes # 2.2 K/mcL (0.6-4.6); Mean Corpuscular HGB Conc 32.2 g/dL (31.6-35.5); Mean Platelet Volume 9.9 fL (9.4-12.4); Monocytes # 0.6 K/mcL (0.0-1.3); Monocytes % 6.1 %; Neutrophils # 6.8 K/mcL (1.6-8.9); Platelet Count 214 K/mcL (140-400); Red Blood Count 4.78 M/mcL (4.19-5.50); Red Cell Distribution Width 14.9 % (11.5-14.5); Segmented Neutrophils % 67.3 %
[2017-06-19 06:23] LABS: Potassium 3.4 mEq/L (3.5-4.5)
[2017-06-19] MEDS: Metoprolol 100 MG TABLET PO SCH ×2 (08:05→20:05)
[2017-06-19] MEDS: *HR* Glimepiride 2 MG TABLET PO SCH (08:05)
[2017-06-19] MEDS: FLUoxetine HCl 10 MG CAPSULE PO SCH (08:05)
[2017-06-19] MEDS: Famotidine 20 MG TABLET PO SCH ×2 (08:05→20:06)
[2017-06-19] MEDS: Torsemide 20 MG TABLET PO SCH ×2 (08:06→17:45)
[2017-06-19] MEDS: Losartan/HCTZ 50-12.5 TABLET PO SCH (08:06)
--- NOTE | 2017-06-19 13:29 | Internal Med Progress Note ---
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 (2) HTN (hypertension) Current Visit: Yes Status: Resolved Qualifiers: Hypertension type: essential hypertension Qualified Code(s): I10 - Essential (primary) hypertension (3) COPD (chronic obstructive pulmonary disease) Current Visit: Yes Status: Chronic Assessment and plan: History right now nonacute issue Qualifiers: COPD type: emphysema Emphysema type: panlobular Qualified Code(s): J43.1 - Panlobular emphysema (4) Lumbar stenosis Current Visit: No Status: Chronic Assessment and plan: No complaints along these low Qualifiers: Qualified Code(s): M48.061 - Spinal stenosis, lumbar region without neurogenic claudication - Time Spent With Patient less than 15 minutes - Subjective Interval history: improved. The patient is op thoracic ambulating and smiling and joking. Please see PT and OT notes - Constitutional Vitals: Temp Pulse Resp BP Pulse Ox 97.8 F 64 17 127/79 94 06/19/17 07:27 06/19/17 07:27 06/19/17 07:27 06/19/17 07:27 06/19/17 07:27 General appearance: Present: A&O X 3, pleasant, answers questions appropriately. Absent: no acute distress, severe distress - Head Head exam: Present: atraumatic, normal inspection, normocephalic - Neck Neck exam general surgery: Present: supple, trachea midline. Absent: lymphadenopathy - Respiratory Respiratory exam: Present: CTAB. Absent: accessory muscle use, rales, rhonchi, wheezes - Cardiovascular Cardiovascular exam: Present: RRR, +S1, +S2. Absent: diastolic murmur, gallop, rubs, systolic murmur - GI/Abdominal GI/Abdominal exam: Present: normal bowel sounds, soft, no peritoneal signs. Absent: distended, tenderness Internal Medicine: Result - Labs CBC & Chem 7: 06/19/17 05:40 06/19/17 05:40 Labs: Short CBC 06/19/17 Range/Units 05:40 WBC 10.1 (4.3-11.1) K/mcL Hgb 13.4 (12.9-16.9) g/dL Hct 41.6 (37.5-50.1) % Plt Count 214 (140-400) K/mcL Neutrophils # 6.8 (1.6-8.9) K/mcL BMP 06/19/17 05:40 Sodium 140 Potassium 3.4 L Chloride 100 Carbon Dioxide 29 BUN 46 H Creatinine 1.70 H Glucose 108 H Calcium 9.0 - ABG Interpretation ABG results: PT/INR, D-dimer PT 11.1 Seconds (9.4-12.1) 06/06/17 05:25 - VTE Documentation of Mechanical Device: Graduated compression elastic hosiery Consult Discharge Plan - Plan Referrals: Luisana Mejia, PAC [Primary Care Provider] -
[2017-06-19] MEDS ORDERED: Chloraseptic Spray 177 ML BOTTLE MM PRN (17:54)
[2017-06-20 05:11] LABS: Calcium 8.9 mg/dL (8.6-10.8); Potassium 3.3 mEq/L (3.5-4.5)
[2017-06-20] MEDS: Famotidine 20 MG TABLET PO SCH ×2 (08:26→20:28)
[2017-06-20] MEDS: FLUoxetine HCl 10 MG CAPSULE PO SCH (08:26)
[2017-06-20] MEDS: Losartan/HCTZ 50-12.5 TABLET PO SCH (08:26)
[2017-06-20] MEDS: Metoprolol 100 MG TABLET PO SCH ×2 (08:27→20:29)
[2017-06-20] MEDS: *HR* Glimepiride 2 MG TABLET PO SCH (08:27)
[2017-06-20] MEDS: Torsemide 20 MG TABLET PO SCH ×2 (08:27→16:02)
--- NOTE | 2017-06-20 13:11 | Internal Med Progress Note ---
Date of Encounter: 06/20/17 Time of Encounter: 13:09 - Assessment and plan (1) CVA (cerebral vascular accident) Current Visit: Yes Status: Acute Assessment and plan: Patient is much improved since his CVA tenderness deep stroke. 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 He is ambulating in the halls his walker he had a big Thanksgiving dinner which she but dissipated and had no complaints - Constitutional Vitals: Temp Pulse Resp BP Pulse Ox 97.6 F 66 16 145/83 95 06/20/17 07:18 06/20/17 07:18 06/20/17 07:18 06/20/17 07:18 06/20/17 07:18 General appearance: Present: A&O X 3, pleasant, answers questions appropriately. Absent: no acute distress, severe distress - Head Head exam: Present: atraumatic, normal inspection, normocephalic - Neck Neck exam general surgery: Present: supple, trachea midline. Absent: lymphadenopathy - Respiratory Respiratory exam: Present: CTAB. Absent: accessory muscle use, rales, rhonchi, wheezes - Cardiovascular Cardiovascular exam: Present: RRR, +S1, +S2. Absent: diastolic murmur, gallop, rubs, systolic murmur - GI/Abdominal GI/Abdominal exam: Present: normal bowel sounds, soft, no peritoneal signs. Absent: distended, tenderness Internal Medicine: Result - Labs CBC & Chem 7: 06/19/17 05:40 06/20/17 04:30 Labs: BMP 06/20/17 04:30 Sodium 139 Potassium 3.3 L Chloride 102 Carbon Dioxide 27 BUN 43 H Creatinine 1.41 H Glucose 95 Calcium 8.9 Labs stable - ABG Interpretation ABG results: PT/INR, D-dimer PT 11.1 Seconds (9.4-12.1) 06/06/17 05:25 - VTE Documentation of Mechanical Device: Graduated compression elastic hosiery Consult Discharge Plan - Plan Referrals: Luisana Mejia, PAC [Primary Care Provider] -
[2017-06-21 08:04] VITALS: BP 120/73
[2017-06-21] MEDS: *HR* Glimepiride 2 MG TABLET PO SCH (09:49)
[2017-06-21] MEDS: Metoprolol 100 MG TABLET PO SCH (09:49)
[2017-06-21] MEDS: Losartan/HCTZ 50-12.5 TABLET PO SCH (09:49)
[2017-06-21] MEDS: Torsemide 20 MG TABLET PO SCH (09:49)
[2017-06-21] MEDS: Famotidine 20 MG TABLET PO SCH (09:50)
[2017-06-21] MEDS: FLUoxetine HCl 10 MG CAPSULE PO SCH (09:50)
--- NOTE | 2017-06-21 11:50 | Discharge Summary ---
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 (2) COPD (chronic obstructive pulmonary disease) Priority: Secondary Status: Chronic Qualifiers: COPD type: emphysema Emphysema type: panlobular Qualified Code(s): J43.1 - Panlobular emphysema (3) Lumbar stenosis Priority: Secondary Status: Chronic Qualifiers: Qualified Code(s): M48.062 - Spinal stenosis, lumbar region with neurogenic claudication - Discharge Medications Home Medications: Albuterol Neb [Proventil Neb] 2.5 mg IH Q4HR PRN 03/16/15 [History] Allopurinol [Zyloprim] 300 mg PO BID 03/16/15 [History] Glimepiride [Amaryl] 2 mg PO BID 03/16/15 [History] Losartan/Hydrochlorothiazide [Hyzaar 100-25 Tablet] 1 each PO DAILY 03/16/15 [ History] Metoprolol [Lopressor] 100 mg PO BID 03/16/15 [History] Tiotropium [place] [Spiriva Respimat] 4 gm IH DAILY PRN 03/16/15 [History] Allergies/Adverse Reactions: 3 Allergy/AdvReac Type Severity Reaction Status Date / Time pioglitazone [From Actos] AdvReac Mild Palpitation Verified 03/16/15 06:43 s Date of admission: 06/05/17 18:37 Primary care physician: REID Isaacs Consults: 06/05/17 18:17 Consult to Occupational Therapy [CONS] Routine Comment: Evaluate, develop and implement POC Reason for Consult: eval Consult to Physical Therapy [CONS] Routine Comment: Evaluate, develop and implement POC Reason for Consult: eval Consult to Recreational Therapy [CONS] Routine Comment: Evaluate, develop and implement POC Consult to [employer] [CONS] Routine Reason for SW Consult: eval Consult to Speech Therapy [CONS] Routine Comment: Evaluate, develop and implement POC Reason for Consult: speech impairment Call Completed: Yes 06/06/17 12:01 Consult to Psychology [CONS] Routine Consulting Provider: Aniyah Pinzon Reason for Consult: CVA Time Notified: 12:00 Call Completed: No 06/20/17 13:41 Consult to Occupational Therapy [CONS] Routine Comment: Driving evaluation Reason for Consult: CVA Discharging clinician: Mohsen Chowdhury Anticipated date of discharge: 06/21/17 - Patient Status Disposition: Home, Self-Care Condition: Good Functional capacity at discharge: uses cane/walker Overall status at discharge: patient is progressing back to baseline - Discharge Instructions Follow Up With: Luisaan Mejia PAC [Primary Care Provider] - Jason Perea MD [Non-Partnered Physician] - 06/27/17 8:00 am (F/U APPOINTMENT FROM [facility] ) - Diet and Activity Activity: ambulate only with your walker Diet: advance to your usual diet Interval History: Patient had a CVA ischemic in nature and was sent here. Somewhat complicated because he also had pain in his foot due to gout Hospital course: Mr. Storey is a 77 year old male - Time Spent with Patient Total time spent providing and/or coordinating discharge services: Less than 30 minutes - Constitutional Vitals: Temp Pulse Resp BP Pulse Ox 97.4 F L 69 16 120/73 94 06/21/17 07:00 06/21/17 07:00 06/21/17 07:00 06/21/17 07:00 06/21/17 07:00 General appearance: Present: A&O X 3, pleasant, answers questions appropriately. Absent: no acute distress, severe distress - Head Head exam: Present: atraumatic, normal inspection, normocephalic - Neck Neck exam general surgery: Present: supple, trachea midline. Absent: lymphadenopathy - Respiratory Respiratory exam: Present: CTAB. Absent: accessory muscle use, rales, rhonchi, wheezes - Cardiovascular Cardiovascular exam: Present: RRR, +S1, +S2. Absent: diastolic murmur, gallop, rubs, systolic murmur - GI/Abdominal GI/Abdominal exam: Present: normal bowel sounds, soft, no peritoneal signs. Absent: distended, tenderness - VTE Documentation of Mechanical Device: Graduated compression elastic hosiery
== END 2017-06-21 12:45 | disposition home or self-care (01) | DRG 57 ==
LOC: INPGRE 18:37
PROVIDERS: ADMIT Internal Medicine; ATTEND Internal Medicine

== ENCOUNTER 2018-12-08 17:44 | Inpatient (IN) ==
[2018-12-09] MEDS ORDERED: Levalbuterol Neb 1.25 MG/3 ML IH PRN (19:08)
[2018-12-09] MEDS ORDERED: Dextrose Gel 15 GM/37.5 ML TUBE PO PRN ×2 (19:10)
[2018-12-09] MEDS ORDERED: D5% in Water 1,000 ML IVC PRN (19:10)
[2018-12-09] MEDS ORDERED: *HR* Dextrose 50 % in Water (Syg) 50 ML SYRINGE IVP PRN (19:10)
[2018-12-09] MEDS: Insulin LISPRO 300 UNITS/3 ML VIAL SQ SCH (22:27)
[2018-12-09] MEDS: Insulin DETEMIR 100 UNIT/ML per UNIT SQ SCH (22:28)
[2018-12-09] MEDS: Metoprolol XL (24 HR) Succ 50 MG TAB.ER.24H PO SCH (22:28)
[2018-12-10 05:42] LABS: Basophils # 0.1 K/mcL (0.0-0.2); Basophils % 0.7 %; Eosinophils % 0.1 %; Hematocrit 42.5 % (37.5-50.1); Hemoglobin 13.8 g/dL (12.9-16.9); Immature Granulocytes % 6.8 % (0-4); Lymphocytes # 1.3 K/mcL (0.6-4.6); Lymphocytes % 13.4 %; Mean Corpuscular HGB Conc 32.5 g/dL (31.6-35.5); Mean Corpuscular Hemoglobin 29.3 pg (28.0-33.3); Mean Corpuscular Volume 90.2 fL (83.0-100.0); Mean Platelet Volume 9.7 fL (9.4-12.4); Monocytes # 0.5 K/mcL (0.0-1.3); Monocytes % 5.4 %; Neutrophils # 7.3 K/mcL (1.6-8.9); Platelet Count 199 K/mcL (140-400); Red Blood Count 4.71 M/mcL (4.19-5.50); Red Cell Distribution Width 13.7 % (11.5-14.5); Segmented Neutrophils % 73.6 %
[2018-12-10 05:56] LABS: BUN/Creatinine Ratio 44 (6-26); Blood Urea Nitrogen 49 mg/dL (8-23); Calcium 7.8 mg/dL (8.6-10.3); Carbon Dioxide 30 mEq/L (23-29); Chloride 108 mEq/L (98-107); Glucose 160 mg/dL (70-105); Osmolality,Calculated 306 (280-300); Potassium 4.2 mEq/L (3.5-5.1); Sodium 140 mEq/L (136-145); eGFR For Non-African Americans > 60 (> 60)
[2018-12-10] MEDS: Insulin LISPRO 300 UNITS/3 ML VIAL SQ SCH ×4 (07:48→21:19)
[2018-12-10] MEDS ORDERED: predniSONE 20 MG TABLET PO SCH (08:00)
[2018-12-10] MEDS ORDERED: Insulin LISPRO 300 UNITS/3 ML VIAL SQ SCH (08:00)
[2018-12-10] MEDS: Cholecalciferol (D-3) 1,000 UNIT TABLET PO SCH (08:07)
[2018-12-10] MEDS: Metoprolol XL (24 HR) Succ 50 MG TAB.ER.24H PO SCH ×2 (08:07→21:17)
[2018-12-10] MEDS: Finasteride 5 MG TABLET PO SCH (08:07)
[2018-12-10] MEDS: *HR* Enoxaparin 40 MG/0.4 ML SYRINGE SQ SCH (10:25)
--- NOTE | 2018-12-10 11:17 | Internal Med History&Physical ---
Date of Encounter: 12/10/18 Time of Encounter: 11:15 Assessment and Plan (1) PMR (polymyalgia rheumatica) Current visit: Yes Status: Acute PT and OT to eval and treat. Pain resulting with prednisone. Will continue to monitor closely. (2) HTN (hypertension) Current visit: Yes Status: Resolved Controlled with current medication. Monitor blood pressure. Qualifiers: Hypertension type: essential hypertension Qualified Code(s): I10 - Essential (primary) hypertension (3) BPH loc w urin obs/LUTS Current visit: Yes Status: Acute Continue Burton. Follow up with Dr. Cheng, urologist. Prostate surgery was on . (4) JORDY (acute kidney injury) Current visit: Yes Status: Resolved Improving. Creatinine normal at 1.11. Follows up with Dr. Guerra for nephrology. Monitor labs. Avoid nephrotoxic agents. (5) CKD (chronic kidney disease), stage III Current visit: Yes Status: Acute (6) Diabetes type 2, controlled Current visit: Yes Status: Acute Glucose elevated due to prednisone use. Continue to monitor fingerstick blood sugars. Continue sliding scale insulin. Continue diabetic diet. Qualifiers: Diabetes mellitus superintendent terminal insulin use: with superintendent terminal use Diabetes mellitus complication status: with hypoglycemia Qualified Code(s): E11.649 - Type 2 diabetes mellitus with hypoglycemia without coma; Z79.4 - FDC (current) use of insulin Internal Medicine - H&P: HPI Admitted From: Hospital to Hospital Transfer Plans for Post Hospital Care: Home History of present illness: Mr. Storey is a 78 year old male admitted to inpatient rehab unit after transfe rring from [facility]. Patient was admitted at [facility] for bilateral shoulder and neck pain with severe pain that radiated to neck and shoulders. He became very weak and bilateral lower extremities and arms. States the pain and weakness went to his jaw also. had a prostate procedure 3 weeks ago and is to continue burton cath till follow up with urology. upon admission to [facility], creatinine was 1.5 and at one point when up to 3.12. ESR (>130) and CRP (249.6) elevated, was thought to have rheumatologic disorder such as PMR. was started on high doses of prednisone and is improving. states pain is almost resolved. PT and OT to eval and treat. Past medical history includes diabetes, obstructive sleep apnea, where c-PAP, hypertension, history of thalamic hemorrhage associated with HTN in 2017) present at bedside during exam. denies fever, chills, NVD, SOB or chest pain. glucose elevated likely due to prednisone. continue insulin coverage with sliding scale. Past Med Surg Social Fam HX - Past Medical History Medical history: arthritis, asthma, COPD, CVA, diabetes, dialysis, hyperli pidemia, hypertension Additional medical history: lumbar stenosis. gout Psychiatric history: no psych history - Past Surgical History Surgical History: other Additional surgical history: back sx, tonsillectomy - Social History Smoking Status: Former smoker Smokeless Tobacco Status: No Alcohol use: rarely Drug use: none - Family History Mother Living Status: Hx Family Cardiac Disorders: Yes Hx Family Cancer: Yes Internal Medicine - H&P: Meds Cholecalciferol (Vitamin D3) [Vitamin D3] 50,000 unit PO QMONTH 11/20/18 [History] Finasteride [Proscar] 5 mg PO DAILY 11/20/18 [History] Levalbuterol Neb [Xopenex Neb] 1.25 mg IH Q8H PRN 11/20/18 [History] Metoprolol Succinate [Toprol Xl] 100 mg PO BID 11/20/18 [History] Allopurinol [Zyloprim 100 MG] 100 mg PO DAILY 12/09/18 [History] Insulin DETEMIR [Levemir] 39 unit SQ HS 12/09/18 [History] Pantoprazole Sodium [Protonix] 40 mg PO DAILY 12/09/18 [History] Polyethylene Glycol 3350 [MiraLAX] 17 gm PO DAILY 12/09/18 [History] Tamsulosin HCl [Flomax] 0.4 mg PO 1200 12/09/18 [History] predniSONE [PredniSONE] 40 mg PO BIDWM 12/09/18 [History] Allergy/AdvReac Type Severity Reaction Status Date / Time pioglitazone [From Actos] AdvReac Mild Palpitation Verified 11/20/18 12:54 s All Systems PM: A 10-system review of systems was performed and is negative for pertinent findings except as documented above in the HPI. - Constitutional Constitutional: no chills, no fever(s), no night sweats - EENT Eyes: no change in vision, no discharge, no pain, no photophobia Ears: no ear discharge, no ear pain, no tinnitus Nose, mouth and throat: no dysphagia, no nasal discharge, no neck pain, no sore throat - Cardiovascular Cardiovascular ROS IM: no chest pain, no diaphoresis, no dyspnea, no lightheadedness, no palpitations, no syncope - Respiratory Respiratory: no cough, no dyspnea, no wheezing, no excessive phlegm production - Gastrointestinal Gastrointestinal: no abdominal pain, no diarrhea, no hematemesis, no hematochezia, no melena, no nausea, no vomiting - Musculoskeletal Musculoskeletal ROS IM: no numbness, no tingling - Integumentary Integumentary IM: no rash, no unusual bruising - Neurological Neurological ROS: no confusion, no convulsions, no focal weakness, no numbness, no tingling, no tremor(s) - Hematologic/Lymphatic Hematologic/Lymphatic: no easy bruising - Constitutional Vitals: Temp Pulse Resp BP Pulse Ox 97.6 F 60 18 151/83 93 12/10/18 07:24 12/10/18 07:24 12/10/18 07:24 12/10/18 07:24 12/10/18 07:24 General appearance: Present: A&O X 3, pleasant, no acute distress, obese, answer s questions appropriately - Head Head exam: Present: atraumatic, normocephalic - Eye Eye exam: Present: PERRL, conjuntiva pink, sclera anicteric Pupils: Present: PERRL - Neck Neck exam general surgery: Present: supple, trachea midline. Absent: lymphadenopathy - Respiratory Respiratory exam: Present: CTAB. Absent: accessory muscle use, rales, rhonchi, wheezes - Cardiovascular Cardiovascular exam: Present: RRR, +S1, +S2. Absent: diastolic murmur, gallop, rubs, systolic murmur - GI/Abdominal GI/Abdominal exam: Present: normal bowel sounds, soft, no peritoneal signs. Absent: distended, tenderness - Extremities Exam Extremities exam: Present: warm, radial pulses palpable and symmetrical. Absen t: calf tenderness, cyanotic, pedal edema Additional comments: BLE weakness strength 4/5 - Neurological Exam Neurological exam: Present: CN II-XII intact, oriented X3, no focal deficits. Absent: pronater drift, facial droop, speech deficit - Skin Skin exam: Present: dry, intact Internal Med - H&P Results - Labs CBC & Chem 7: 12/10/18 05:20 12/10/18 05:20 Labs: Short CBC 12/10/18 Range/Units 05:20 WBC 10.0 (4.3-11.1) K/mcL Hgb 13.8 (12.9-16.9) g/dL Hct 42.5 (37.5-50.1) % Plt Count 199 (140-400) K/mcL Neutrophils # 7.3 (1.6-8.9) K/mcL BMP 12/10/18 05:20 Sodium 140 Potassium 4.2 Chloride 108 H Carbon Dioxide 30 H BUN 49 H Creatinine 1.11 Glucose 160 H Calcium 7.8 L
[2018-12-10] MEDS ORDERED: Acetaminophen 325 MG TABLET PO PRN (11:24)
[2018-12-10] MEDS ORDERED: Melatonin 3 MG TABLET PO PRN (11:25)
[2018-12-10] MEDS ORDERED: Mag Hydrox/Al Hydrox/Simeth 30 ML UDC PO PRN (11:25)
[2018-12-10] MEDS: predniSONE 10 MG TABLET PO SCH (17:03)
[2018-12-10] MEDS ORDERED: Insulin DETEMIR 100 UNIT/ML X5UNITS SQ SCH (21:00)
[2018-12-10] MEDS: Sennosides 8.6 MG TABLET PO SCH (21:18)
[2018-12-10] MEDS: Insulin DETEMIR 100 UNIT/ML per UNIT SQ SCH (22:52)
[2018-12-11 06:19] LABS: Alanine Aminotransferase 52 Units/L (7-52); Albumin 2.6 g/dL (3.5-5.7); Albumin/Globulin Ratio 1.1 (1.1-2.2); Alkaline Phosphatase 66 Units/L (34-104); Aspartate Amino Transferase 39 Units/L (13-39); BUN/Creatinine Ratio 42 (6-26); Bilirubin,Total 0.5 mg/dL (0.3-1.0); Blood Urea Nitrogen 45 mg/dL (8-23); Carbon Dioxide 29 mEq/L (23-29); Chloride 108 mEq/L (98-107); Globulin 2.3 g/dL (2.4-3.5); Glucose 147 mg/dL (70-105); Osmolality,Calculated 304 (280-300); Potassium 4.2 mEq/L (3.5-5.1); Sodium 140 mEq/L (136-145); Total Protein 4.9 g/dL (6.4-8.9); eGFR For Non-African Americans > 60 (> 60)
[2018-12-11] MEDS: Insulin LISPRO 300 UNITS/3 ML VIAL SQ SCH ×4 (07:26→21:27)
[2018-12-11] MEDS: Cholecalciferol (D-3) 1,000 UNIT TABLET PO SCH (09:45)
[2018-12-11] MEDS: Metoprolol XL (24 HR) Succ 50 MG TAB.ER.24H PO SCH ×2 (09:45→21:54)
[2018-12-11] MEDS: predniSONE 10 MG TABLET PO SCH (09:45)
[2018-12-11] MEDS: *HR* Enoxaparin 40 MG/0.4 ML SYRINGE SQ SCH (09:45)
[2018-12-11] MEDS: Sennosides 8.6 MG TABLET PO SCH ×3 (09:45→21:54)
[2018-12-11] MEDS: Finasteride 5 MG TABLET PO SCH (09:45)
--- NOTE | 2018-12-11 10:19 | Internal Med Progress Note ---
Date of Encounter: 12/11/18 Time of Encounter: 10:17 - Assessment and plan (1) PMR (polymyalgia rheumatica) Current Visit: Yes Status: Acute Assessment and plan: His aldolase muscle breakdown is normal so this does not seem to be polymyositis. PMR is questioned. His sedimentation rate has markedly improved so will continue to wean prednisone. He will go down today to 20 mg twice a day. After a few days, will think about further weaning maybe to 30 mg daily. (2) JORDY (acute kidney injury) Current Visit: Yes Status: Resolved Assessment and plan: The patient's renal function has returned to near normal. I am concerned about his elevated BUN which might be dehydration or muscle protein breakdown or occult GI tumor. We have requested stool for Hemoccult. We will also consult nutrition because of his hypoalbuminemia. (3) Hypoalbuminemia Current Visit: Yes Status: Acute Assessment and plan: This does not seem to be nutritional but might be. We will obtain a serum protein electrophoresis because he also has a low total protein. We will also check a urine for spot microalbuminuria. (4) COPD (chronic obstructive pulmonary disease) Current Visit: No Status: Chronic Assessment and plan: Clinically stable without symptoms. Qualifiers: COPD type: emphysema Emphysema type: panlobular Qualified Code(s): J43.1 - Panlobular emphysema (5) HTN (hypertension) Current Visit: Yes Status: Resolved Assessment and plan: Controlled. Will follow and consider resumption of low-dose losartan. Qualifiers: Hypertension type: essential hypertension Qualified Code(s): I10 - Essential (primary) hypertension (6) Constipation Current Visit: No Status: Acute Assessment and plan: Improved and now on senna, Colace, and his chronic MiraLAX. Qualifiers: Constipation type: other constipation type Qualified Code(s): K59.09 - Other constipation (7) BPH loc w urin obs/LUTS Current Visit: Yes Status: Acute Assessment and plan: Will try removal of Cortez catheter, as noted. (8) Diabetes type 2, controlled Current Visit: Yes Status: Acute Assessment and plan: Improved control. We will resume Amaryl as noted and follow with sliding scale, as noted. Qualifiers: Diabetes mellitus crm developer insulin use: with crm developer use Diabetes mellitus complication status: with hypoglycemia Qualified Code(s): E11.649 - Type 2 diabetes mellitus with hypoglycemia without coma; Z79.4 - FPC (current) use of insulin - Subjective Interval history: Patient is without complaint. He is feeling no pain in his joints, at all. He is pleased that her sugar is better if she is concerned, as is his , about his home medications. Based on his current medications, we will hold his torsemide and other medications he is not receiving currently. However, we will resume Amaryl 2 mg twice a day, today. Because his sugars trending low, I will also discontinue his Levemir. He might receive a lower dose but because we are decreasing his prednisone dose, we will also use just sliding scale from the next day or so. He is fine with this. Per the patient's , he is fine without the Cortez catheter when he is able to urinate, on his own. We will thus discontinue his catheter, today. Patient had a small bowel movement, yesterday. Patient has no complaint of chest discomfort, dyspnea, orthopnea, palpitations, nausea or vomiting, constipation or diarrhea, other changes in bowel habits, difficulty with urination, rash or itching, or other new complaints, except as mentioned above. Review of systems is otherwise negative. I discussed management of her care with nursing staff. - Constitutional Vitals: Temp Pulse Resp BP Pulse Ox 97.6 F 57 18 159/88 94 12/11/18 07:00 12/11/18 07:00 12/11/18 07:00 12/11/18 07:00 12/11/18 07:00 Exam: Examination: (Except as mentioned above): General: In no apparent distress. Alert and oriented 3. Nondiaphoretic. Head: Atraumatic and normocephalic. Respiratory: No use of accessory muscles. Lungs are clear throughout. Normal airflow. Cardiovascular: Regular rate and rhythm without murmur appreciated. Abdomen: Bowel sounds are normal. No hepatosplenomegaly mass or tenderness appreciated. Morbidly obese and therefore difficult to palpate deeply. Patient is examined upright in chair and this also limits exam. Extremities: No cyanosis clubbing or edema. Skin: Warm and non-diaphoretic with no new lesions noted. Internal Medicine: Result - Labs CBC & Chem 7: 12/10/18 05:20 12/11/18 05:40 Labs: BMP 12/11/18 05:40 Sodium 140 Potassium 4.2 Chloride 108 H Carbon Dioxide 29 BUN 45 H Creatinine 1.07 Glucose 147 H Calcium 8.0 L Liver Function 12/11/18 Range/Units 05:40 Total Bilirubin 0.5 (0.3-1.0) mg/dL AST 39 (13-39) Units/L ALT 52 (7-52) Units/L Alkaline Phosphatase 66 (34-104) Units/L Albumin 2.6 L (3.5-5.7) g/dL Consult Discharge Plan - Plan Referrals: Jason Perea MD [Primary Care Provider] -
[2018-12-11] MEDS: *HR* Glimepiride 2 MG TABLET PO SCH ×2 (11:42→18:09)
[2018-12-11] MEDS: predniSONE 20 MG TABLET PO SCH (18:09)
[2018-12-12] MEDS: Insulin LISPRO 300 UNITS/3 ML VIAL SQ SCH ×4 (07:51→20:14)
[2018-12-12] MEDS: Cholecalciferol (D-3) 1,000 UNIT TABLET PO SCH (07:59)
[2018-12-12] MEDS: Metoprolol XL (24 HR) Succ 50 MG TAB.ER.24H PO SCH ×2 (07:59→20:14)
[2018-12-12] MEDS: *HR* Enoxaparin 40 MG/0.4 ML SYRINGE SQ SCH (07:59)
[2018-12-12] MEDS: predniSONE 20 MG TABLET PO SCH ×2 (07:59→16:38)
[2018-12-12] MEDS: Finasteride 5 MG TABLET PO SCH (07:59)
[2018-12-12] MEDS: Sennosides 8.6 MG TABLET PO SCH ×2 (07:59→20:05)
[2018-12-12] MEDS: *HR* Glimepiride 2 MG TABLET PO SCH ×2 (07:59→16:38)
--- NOTE | 2018-12-12 08:40 | Internal Med Progress Note ---
Date of Encounter: 12/12/18 Time of Encounter: 08:37 - Assessment and plan (1) PMR (polymyalgia rheumatica) Current Visit: Yes Status: Acute Assessment and plan: Improving. Continue prednisone, PT and OT. Will follow progress. (2) HTN (hypertension) Current Visit: Yes Status: Resolved Assessment and plan: Controlled with current medication. Monitor blood pressure. Qualifiers: Hypertension type: essential hypertension Qualified Code(s): I10 - Essential (primary) hypertension (3) BPH loc w urin obs/LUTS Current Visit: Yes Status: Acute Assessment and plan: Continue Cortez. Follow up with urology as scheduled. (4) CKD (chronic kidney disease), stage III Current Visit: Yes Status: Acute Assessment and plan: Creatinine normal. Continue to monitor labs. Avoid nephrotoxic agents. (5) Diabetes type 2, controlled Current Visit: Yes Status: Acute Assessment and plan: Monitor fingerstick blood sugar. Continue sliding scale insulin. Qualifiers: Diabetes mellitus prison insulin use: with superintendent marine oil terminal use Diabetes mellitus complication status: with hypoglycemia Qualified Code(s): E11.649 - Type 2 diabetes mellitus with hypoglycemia without coma; Z79.4 - senior care (current) use of insulin - Time Spent With Patient less than 15 minutes - Subjective Interval history: Patient participating well in therapy. Denies any complaints. States slept well. States pain is just about resolved. Feeling much stronger. Maintaining appetite and hydration. Denies fever, chills, nausea vomiting or diarrhea. - Constitutional Vitals: Temp Pulse Resp BP Pulse Ox 97.7 F 60 16 169/83 97 12/11/18 19:45 12/11/18 19:45 12/11/18 19:45 12/11/18 19:45 12/11/18 19:45 General appearance: Present: A&O X 3, pleasant, no acute distress, obese, answers questions appropriately - Head Head exam: Present: atraumatic, normocephalic - Eye Eye exam: Present: PERRL, conjuntiva pink, sclera anicteric Pupils: Present: PERRL - Neck Neck exam general surgery: Present: supple, trachea midline. Absent: lymphadenopathy - Respiratory Respiratory exam: Present: CTAB. Absent: accessory muscle use, rales, rhonchi, wheezes - Cardiovascular Cardiovascular exam: Present: RRR, +S1, +S2. Absent: diastolic murmur, gallop, rubs, systolic murmur - GI/Abdominal GI/Abdominal exam: Present: normal bowel sounds, soft, no peritoneal signs. Absent: distended, tenderness - Extremities Exam Extremities exam: Present: warm, radial pulses palpable and symmetrical. Absent : calf tenderness, cyanotic, pedal edema - Neurological Exam Neurological exam: Present: CN II-XII intact, oriented X3, no focal deficits. Absent: pronater drift, facial droop, speech deficit - Skin Skin exam: Present: dry, intact Internal Medicine: Result - Labs CBC & Chem 7: 12/10/18 05:20 12/11/18 05:40 Consult Discharge Plan - Plan Referrals: Jason Perea MD [Primary Care Provider] -
[2018-12-12 08:52] LABS: C-Reactive Protein 29 mg/L (Less than 10)
--- NOTE | 2018-12-12 14:30 | Psychological Evaluation ---
Date of Encounter: 12/12/18 Time of Encounter: 10:30 History of Present Illness History of present illness: Mr. Storey is a 78 year old male admitted to inpatient rehab unit after transferring from [facility]. Patient was admitted at [facility] for bilateral shoulder and neck pain with severe pain that radiated to neck and shoulders. He became very weak and bilateral lower extremities and arms. States the pain and weakness went to his jaw also. Had a prostate procedure 3 weeks ago. Past Medical History - Psychiatric History Psychiatric history: Reports: no psych history Home Medications and Allergies Cholecalciferol (Vitamin D3) [Vitamin D3] 50,000 unit PO QMONTH 11/20/18 [History] Finasteride [Proscar] 5 mg PO DAILY 11/20/18 [History] Levalbuterol Neb [Xopenex Neb] 1.25 mg IH Q8H PRN 11/20/18 [History] Metoprolol Succinate [Toprol Xl] 100 mg PO BID 11/20/18 [History] Allopurinol [Zyloprim 100 MG] 100 mg PO DAILY 12/09/18 [History] Insulin DETEMIR [Levemir] 39 unit SQ HS 12/09/18 [History] Pantoprazole Sodium [Protonix] 40 mg PO DAILY 12/09/18 [History] Polyethylene Glycol 3350 [MiraLAX] 17 gm PO DAILY 12/09/18 [History] Tamsulosin HCl [Flomax] 0.4 mg PO 1200 12/09/18 [History] predniSONE [PredniSONE] 40 mg PO BIDWM 12/09/18 [History] Allergy/AdvReac Type Severity Reaction Status Date / Time pioglitazone [From Actos] AdvReac Mild Palpitation Verified 11/20/18 12:54 s Social History - Social History Social History: 60years with 4 adult children and 10 grandchildren and some greatgrand children. completed 9th grade and has difficulty with reading and spelling. retired in unsure. 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 NO or legal hx. - Tobacco Use Have you smoked in the last 12 months: No - Alcohol Use Alcohol Use: rarely - Drug Use Drug Use: none Cognitive/Emotional Assessment - Cognitive Ability Abstract Thinking Ability: No Deficits Noted Attention Span Ability: Capable of Focused Attention, Capable of Sustained Attention Language Function Ability: No Deficits Noted Verbal Communication Ability: Conversational Style Problem Solving Ability: Able To Solve Simple Problems Level of Alertness: Alert Memory Description: Recent Intact, Immediate Intact Orientation: Person, Place, Time, Name, Age, Date of Visual Spatial Deficit: No Deficits Noted Ability to Follow Directions: Good Speech Pattern: Normal rate Thought Process: Intact, Logical Additional Findings: Had difficulty with mental double digit math but stated always has. 3/3 words immediate , 1/3 after 5min, and 2/2 with categorical cue. Knew current events.4 digits forward and 3 digits backward. - Emotional Status Mood Description: Depressed Affect Description: Full range, Tearful Coping Ability: Verbalizes positive coping skills Additional Findings: Critical of self and feels needs to get affairs in order and think more of others wants/needs - . Discussed mortality and health concerns. Assessment & Plan - Diagnosis (1) Adjustment disorder with depressed mood - Prognosis Prognosis: Good - Treatment Plan Treatment Plan/Recommendations: Discussed reframing emotions and activating a plan to initiate change around home and relationship with . Take her opinions and desires into account instead of ignoring. Procedures - Participants Therapy Participant: Patient - Session Time Session Start Time: 10:30 Session Stop Time: 11:00
[2018-12-13] MEDS: *HR* Enoxaparin 40 MG/0.4 ML SYRINGE SQ SCH (08:58)
[2018-12-13] MEDS: *HR* Glimepiride 2 MG TABLET PO SCH ×2 (08:59→17:12)
[2018-12-13] MEDS: Sennosides 8.6 MG TABLET PO SCH ×2 (08:59→21:22)
[2018-12-13] MEDS: Cholecalciferol (D-3) 1,000 UNIT TABLET PO SCH (08:59)
[2018-12-13] MEDS: Finasteride 5 MG TABLET PO SCH (08:59)
[2018-12-13] MEDS: Metoprolol XL (24 HR) Succ 50 MG TAB.ER.24H PO SCH ×2 (08:59→21:20)
[2018-12-13] MEDS: predniSONE 20 MG TABLET PO SCH ×2 (08:59→17:12)
[2018-12-13] MEDS: Insulin LISPRO 300 UNITS/3 ML VIAL SQ SCH ×4 (09:00→21:22)
[2018-12-13 09:50] LABS: ANA IgG by ELISA NONE DETECTED (None Detected)
--- NOTE | 2018-12-13 10:59 | Internal Med Progress Note ---
Date of Encounter: 12/13/18 Time of Encounter: 10:56 - Assessment and plan (1) PMR (polymyalgia rheumatica) Current Visit: Yes Status: Acute Assessment and plan: No acute issues. Patient continues with complaints of moderate generalized pain to his bilateral shoulders which increases during active motion and therapy. Patient states that his pain currently is tolerable with current medications. He with current therapy which patient reportedly has been progressing well with. (2) Lumbar stenosis Current Visit: No Status: Chronic Assessment and plan: Patient complaints of radicular pain down bilateral hips and legs which she s tates currently is tolerable. Patient states long history of lumbar stenosis with previous surgeries. Patient states that he was planning on being evaluated for possible CARLOTTA prior to his admission to hospital, due to a progressive increasing of radicular symptoms. No focal neurological deficits noted on exam, to include motor or hyperreflexia. Patient does complain of decreased sensation in paresthesia in bilateral feet but has a history of poorly controlled diabetes and neuropathy. Qualifiers: Qualified Code(s): M48.062 - Spinal stenosis, lumbar region with neurogenic claudication (3) HTN (hypertension) Current Visit: Yes Status: Chronic Assessment and plan: Patient's systolic blood pressure currently has shown several readings greater than 170. Patient currently on Toprol. We will discuss with Dr. Fay for further titration of medications. Qualifiers: Hypertension type: essential hypertension Qualified Code(s): I10 - Essential (primary) hypertension (4) COPD (chronic obstructive pulmonary disease) Current Visit: No Status: Chronic Assessment and plan: No acute issues. Patient denies any dyspnea or productive cough. Lungs are diminished throughout lower nance. Respiratory effort appears relaxed while at rest. We will continue with current medications and plan of care. Qualifiers: COPD type: emphysema Emphysema type: panlobular Qualified Code(s): J43.1 - Panlobular emphysema (5) CKD (chronic kidney disease), stage III Current Visit: Yes Status: Acute Assessment and plan: No acute issues at this time. Patient's most recent creatinine is 1.07. We will continue with current medications. (6) Diabetes type 2, controlled Current Visit: Yes Status: Acute Assessment and plan: Patient with long history of poorly controlled diabetes. Patient's most recent fingersticks have shown better control with most readings less than 170 over past 48 hours. We will continue with current plan of care to include sliding scale insulin coverage. Qualifiers: Diabetes mellitus mcc insulin use: with mcc use Diabetes mellitus complication status: with hypoglycemia Qualified Code(s): E11.649 - Type 2 diabetes mellitus with hypoglycemia without coma; Z79.4 - USP (current) use of insulin (7) Adjustment disorder with depressed mood Current Visit: Yes Status: Acute Assessment and plan: No acute issues at present. Patient interacting well with staff and appears in good spirits. Patient was seen by psychiatry yesterday with recommendations appreciated. (8) Gout Current Visit: Yes Status: Chronic Assessment and plan: Patient with long history of gout. Patient currently on allopurinol and appears asymptomatic for any gouty-type symptoms Qualifiers: Gout site: unspecified site Gout etiology: unspecified cause Chronicity: unspecified Qualified Code(s): M10.9 - Gout, unspecified - Time Spent With Patient less than 15 minutes - Subjective Interval history: Patient appears relaxed and currently denies any discomforts or shortness of jacky ath. Patient states she continues to have mild discomforts to bilateral shoulders which increases with range of motion. Patient also states she continues to have radicular type pain that radiates down bilateral legs. Patient states he has a history of neuropathy and has paresthesias of the bilate ral feet with decreased sensation. - Constitutional Vitals: Temp Pulse Resp BP Pulse Ox 97.6 F 58 16 175/79 94 12/13/18 09:47 12/13/18 09:47 12/13/18 09:47 12/13/18 09:47 12/13/18 09:47 General appearance: Present: A&O X 3, pleasant, no acute distress, obese, answers questions appropriately - Head Head exam: Present: atraumatic, normocephalic - Eye Eye exam: Present: PERRL, conjuntiva pink, sclera anicteric Pupils: Present: PERRL - Neck Neck exam general surgery: Present: supple, trachea midline. Absent: lymphadenopathy - Respiratory Respiratory exam: Present: decreased breath sounds, CTAB. Absent: accessory muscle use, rales, rhonchi, wheezes - Cardiovascular Cardiovascular exam: Present: RRR, +S1, +S2. Absent: diastolic murmur, gallop, rubs, systolic murmur - GI/Abdominal GI/Abdominal exam: Present: normal bowel sounds, soft, no peritoneal signs. Absent: distended, tenderness - Extremities Exam Extremities exam: Present: warm, radial pulses palpable and symmetrical. Absent: calf tenderness, cyanotic, pedal edema - Neurological Exam Neurological exam: Present: CN II-XII intact, oriented X3, no focal deficits. Absent: pronater drift, facial droop, speech deficit - Skin Skin exam: Present: dry, intact Internal Medicine: Result - Labs CBC & Chem 7: 12/10/18 05:20 12/11/18 05:40 Consult Discharge Plan - Plan Referrals: Jason Perea MD [Primary Care Provider] -
[2018-12-13] MEDS ORDERED: Furosemide 40 MG TABLET PO ONE (12:45)
[2018-12-14 06:50] VITALS: BP 178/96
[2018-12-14] MEDS: *HR* Glimepiride 2 MG TABLET PO SCH (08:29)
[2018-12-14] MEDS: predniSONE 20 MG TABLET PO SCH (08:29)
[2018-12-14] MEDS: Metoprolol XL (24 HR) Succ 50 MG TAB.ER.24H PO SCH (08:29)
[2018-12-14] MEDS: Finasteride 5 MG TABLET PO SCH (08:29)
[2018-12-14] MEDS: Cholecalciferol (D-3) 1,000 UNIT TABLET PO SCH (08:29)
[2018-12-14] MEDS: *HR* Enoxaparin 40 MG/0.4 ML SYRINGE SQ SCH (08:29)
[2018-12-14] MEDS: Sennosides 8.6 MG TABLET PO SCH (08:29)
[2018-12-14] MEDS: Insulin LISPRO 300 UNITS/3 ML VIAL SQ SCH ×2 (08:30→11:49)
--- NOTE | 2018-12-14 09:34 | Internal Med Progress Note ---
Date of Encounter: 12/14/18 Time of Encounter: 09:32 - Assessment and plan (1) PMR (polymyalgia rheumatica) Current Visit: Yes Status: Acute Assessment and plan: No acute issues. Patient continues with complaints of moderate generalized pain to his bilateral shoulders which increases during active motion and therapy. Patient states that his pain currently is tolerable with current medications. He with current therapy which patient reportedly has been progressing well with. (2) Lumbar stenosis Current Visit: No Status: Chronic Assessment and plan: Patient complaints of radicular pain down bilateral hips and legs which she s tates currently is tolerable. Patient states long history of lumbar stenosis with previous surgeries. Patient states that he was planning on being evaluated for possible CARLOTTA prior to his admission to hospital, due to a progressive increasing of radicular symptoms. No focal neurological deficits noted on exam, to include motor or hyperreflexia. Patient does complain of decreased sensation in paresthesia in bilateral feet but has a history of poorly controlled diabetes and neuropathy. Qualifiers: Qualified Code(s): M48.062 - Spinal stenosis, lumbar region with neurogenic claudication (3) HTN (hypertension) Current Visit: Yes Status: Chronic Assessment and plan: Patient's systolic blood pressure currently has shown several readings greater than 170. Patient currently on Toprol. 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: with ad terminal makeup operator use Diabetes mellitus complication status: with hypoglycemia Qualified Code(s): E11.649 - Type 2 diabetes mellitus with hypoglycemia without coma; Z79.4 - retirement (current) use of insulin (7) Adjustment disorder with depressed mood Current Visit: Yes Status: Acute (8) Gout Current Visit: Yes Status: Chronic Qualifiers: Gout site: unspecified site Gout etiology: unspecified cause Chronicity: unspecified Qualified Code(s): M10.9 - Gout, unspecified - Subjective Interval history: Patient appears relaxed and currently denies any discomforts or shortness of breath. Patient does express concerns that his edema to bilateral legs remains, making his neuropathy pain increase. With long history of CHF and CKD. Patient was given Lasix yesterday, but today's weights remain stable at 124 kg. Patient states he continues to have mild discomforts to bilateral shoulders which increases with range of motion. Patient also states he continues to have radicular type pain that radiates down bilateral legs. Patient states he has a history of neuropathy and has paresthesias of the bilateral feet with decreased sensation. - Constitutional Vitals: Temp Pulse Resp BP Pulse Ox 97.5 F L 61 16 178/96 94 12/14/18 06:49 12/14/18 06:49 12/14/18 06:49 12/14/18 06:49 12/14/18 06:49 General appearance: Present: A&O X 3, pleasant, no acute distress, obese, answers questions appropriately - Head Head exam: Present: atraumatic, normocephalic - Eye Eye exam: Present: PERRL, conjuntiva pink, sclera anicteric Pupils: Present: PERRL - Neck Neck exam general surgery: Present: supple, trachea midline. Absent: ly mphadenopathy - Respiratory Respiratory exam: Present: decreased breath sounds, CTAB. Absent: accessory muscle use, rales, rhonchi, wheezes Additional comments: Respiratory effort appears relaxed while at rest. Lungs are clear throughout upper nance with diminished breath sounds to basilar nance. No productive cough noted. - Cardiovascular Cardiovascular exam: Present: RRR, +S1, +S2. Absent: diastolic murmur, gallop, rubs, systolic murmur - GI/Abdominal GI/Abdominal exam: Present: normal bowel sounds, soft, no peritoneal signs. Absent: distended, tenderness - Extremities Exam Extremities exam: Present: pedal edema, warm, radial pulses palpable and symmetrical. Absent: calf tenderness, cyanotic Additional comments: Patient continues with +2 edema to bilateral lower extremities. - Neurological Exam Neurological exam: Present: CN II-XII intact, oriented X3, no focal deficits. Absent: pronater drift, facial droop, speech deficit - Skin Skin exam: Present: dry, intact Internal Medicine: Result - Labs CBC & Chem 7: 12/10/18 05:20 12/11/18 05:40 Consult Discharge Plan - Plan Referrals: Jason Perea MD [Primary Care Provider] -
--- NOTE | 2018-12-14 10:28 | Discharge Summary ---
Orders not resulted at time of discharge: Pending orders 12/11/18 10:00 Immunoelectrophoresis Routine 12/14/18 09:40 UA w. reflex culture [Urinalysis Reflex Cult & Micro] [URIN] Routine Date of Encounter: 12/14/18 Time of Encounter: 10:26 - Discharge Diagnosis (1) PMR (polymyalgia rheumatica) Priority: Primary Status: Acute Comments: No acute issues during stay of facility. Patient continues with complaints of moderate generalized pain to his bilateral shoulders which increases during active motion and therapy. Patient states that his pain currently is tolerable with current medications. Patient reportedly a progressed well with physical therapy. Patient is continue his current medications follow-up with his PCP after discharge. (2) Lumbar stenosis Priority: Secondary Status: Chronic Comments: Patient has had of radicular pain down bilateral hips and legs which he states currently is tolerable. Patient states long history of lumbar stenosis with previous surgeries. He states that he was planning on being evaluated for possible CARLOTTA prior to his admission to hospital, due to a progressive increasing of radicular symptoms. No focal neurological deficits noted on exam, to include motor or hyperreflexia. Patient does complain of decreased sensation in paresthesia in bilateral feet but has a history of poorly controlled diabetes and neuropathy. Patient recommended to follow up with his PCP and pain management for further evaluation and treatment of his radicular symptoms. He does continue with current home medications Qualifiers: Qualified Code(s): M48.062 - Spinal stenosis, lumbar region with neurogenic claudication (3) HTN (hypertension) Priority: Secondary Status: Chronic Comments: No acute issues during stay of facility. Patient does continue to have slightly elevated blood pressure as recommended to follow up with his PCP for further management. Patient is continue with current medications after discharge Qualifiers: Hypertension type: essential hypertension Qualified Code(s): I10 - Essential (primary) hypertension (4) COPD (chronic obstructive pulmonary disease) Priority: Secondary Status: Chronic Comments: No acute issues during his stay of facility. Patient continues with nebulizer treatments and his continue with his current medications after discharge. No complaints of dyspnea during therapy. Patient is continue follow-up with his PCP after discharge. Qualifiers: COPD type: emphysema Emphysema type: panlobular Qualified Code(s): J43.1 - Panlobular emphysema (5) CKD (chronic kidney disease), stage III Priority: Secondary Status: Chronic Comments: No acute issues during his stay. Patient is continue with current medications and follow-up with PCP after discharge. (6) Diabetes type 2, controlled Priority: Secondary Status: Acute Comments: Patient's glucoses been well controlled during his stay of facility. Patient was noted to have been started on Levemir insulin after discharge from hospital. Patient to continue with Levemir 16 units daily at bedtime and is recommended to follow up with his PCP within one week after discharge for further management. 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 Patient is continue with his current home medications and follow-up with PCP for further management. (8) Gout Priority: Secondary Status: Chronic Comments: Patient continues with allopurinol during his stay in relates no gouty symptoms while he was here at this facility. Patient to continue with his home medications and follow-up with PCP. Qualifiers: Gout site: unspecified site Gout etiology: unspecified cause Chronicity: unspecified Qualified Code(s): M10.9 - Gout, unspecified Hospital course: Mr. Storey is a 78 year old male , who was transferred to this facility for further rehabilitation due to weakness. Patient was admitted to the hospital prior to his admission at this facility for increasing bilateral shoulder and neck pain which was secondary to his rheumatoid arthritis. Patient also with a long history of diabetes, chronic kidney disease, COPD and hypertension. Patient continues with complaints of bilateral shoulder pain, which has been tolerable with current medications. Patient had elevated ESR and CRP on admission. He continues on prednisone at this time with the dosing have not been tapered. Patient continues with Cortez catheter due to issues with urinary retention in we will continue to follow up with his urologist after discharge. Patient continues with Flomax and Proscar. Also complains of moderate pedal edema and has been given daily Lasix for treatment. Patient's weights have remained stable since his admission. Patient's blood pressure has been fairly well-controlled with patient noted to have several readings greater than 170 systolically. Patient participated physical therapy and progressed well. Patient is recommended to make an appointment with his primary care physician within one week of discharge for further evaluation and treatment due to new medications related to his diabetes and rheumatoid arthritis. Discharge discussed with: patient Time spent discussing smoking cessation with patient: 3 to 10 minutes - Time Spent with Patient Total time spent providing and/or coordinating discharge services: Time spent: Less than 30 minutes - Discharge Medications Prescriptions: No Action Metoprolol Succinate [Toprol Xl] 100 mg PO BID Finasteride [Proscar] 5 mg PO DAILY Levalbuterol Neb [Xopenex Neb] 1.25 mg IH Q8H PRN PRN Reason: Shortness Of Breath Cholecalciferol (Vitamin D3) [Vitamin D3] 50,000 unit PO QMONTH predniSONE [PredniSONE] 40 mg PO BIDWM Polyethylene Glycol 3350 [MiraLAX] 17 gm PO DAILY Pantoprazole Sodium [Protonix] 40 mg PO DAILY Allopurinol [Zyloprim 100 MG] 100 mg PO DAILY Tamsulosin HCl [Flomax] 0.4 mg PO 1200 Insulin DETEMIR [Levemir] 39 unit SQ HS Home Medications: Cholecalciferol (Vitamin D3) [Vitamin D3] 50,000 unit PO QMONTH 11/20/18 [History] Finasteride [Proscar] 5 mg PO DAILY 11/20/18 [History] Levalbuterol Neb [Xopenex Neb] 1.25 mg IH Q8H PRN 11/20/18 [History] Metoprolol Succinate [Toprol Xl] 100 mg PO BID 11/20/18 [History] Allopurinol [Zyloprim 100 MG] 100 mg PO DAILY 12/09/18 [History] Insulin DETEMIR [Levemir] 39 unit SQ HS 12/09/18 [History] Pantoprazole Sodium [Protonix] 40 mg PO DAILY 12/09/18 [History] Polyethylene Glycol 3350 [MiraLAX] 17 gm PO DAILY 12/09/18 [History] Tamsulosin HCl [Flomax] 0.4 mg PO 1200 12/09/18 [History] predniSONE [PredniSONE] 40 mg PO BIDWM 12/09/18 [History] Allergies/Adverse Reactions: Allergy/AdvReac Type Severity Reaction Status Date / Time pioglitazone [From Actos] AdvReac Mild Palpitation Verified 11/20/18 12:54 s Date of admission: 12/09/18 18:19 Primary care physician: Jason Perea Consults: 12/09/18 18:30 Consult to Occupational Therapy [CONS] Routine Comment: eval Reason for Consult: eval Does patient have active BEDREST order?: No Is patient medically & hemodynamically stable?: Yes Consult to Physical Therapy [CONS] Routine Comment: eval Reason for Consult: eval Does patient have active BEDREST order?: No Is patient medically & hemodynamically stable?: Yes Consult to Recreational Therapy [CONS] Routine Comment: Consult to Party Host [CONS] Routine Reason for SW Consult: d/c planning 12/10/18 03:03 Consult to Physical Medicine/Rehab [CONS] Routine Reason for Consult: Please evaluate and manage therapies' guidelines and recommend pathway to reconditioning. Call Completed: Yes 12/10/18 13:51 Consult to Psychology [CONS] Routine Consulting Provider: Chio Arroyo Reason for Consult: Psych Eval Time Notified: 13:52 Call Completed: Yes 12/11/18 08:11 Consult to Nutrition [CONS] Routine Comment: Hypoalbminemia Consulting Provider: NUTRITION Reason for Dietary Consult: PO Supplementation Discharging clinician: Timi Fay - Constitutional Vitals: Temp Pulse Resp BP Pulse Ox 97.5 F L 61 16 178/96 94 12/14/18 06:49 12/14/18 06:49 12/14/18 06:49 12/14/18 06:49 12/14/18 06:49 General appearance: Present: A&O X 3, pleasant, no acute distress, obese, answers questions appropriately - Head Head exam: Present: atraumatic, normocephalic - Eye Eye exam: Present: PERRL, conjuntiva pink, sclera anicteric Pupils: Present: PERRL - Neck Neck exam general surgery: Present: supple, trachea midline. Absent: lymphadenopathy - Respiratory Respiratory exam: Present: decreased breath sounds, CTAB. Absent: accessory muscle use, rales, rhonchi, wheezes Additional comments: Lungs are diminished throughout lower nance otherwise are clear. Respiratory effort remains relaxed. No productive cough noted. - Cardiovascular Cardiovascular exam: Present: RRR, +S1, +S2. Absent: diastolic murmur, gallop, rubs, systolic murmur - GI/Abdominal GI/Abdominal exam: Present: normal bowel sounds, soft, no peritoneal signs. Absent: distended, tenderness - Extremities Exam Extremities exam: Present: pedal edema, warm, radial pulses palpable and symmetrical. Absent: calf tenderness, cyanotic Additional comments: Patient with +2 edema to bilateral lower legs and feet. Complaints of pain to bilateral shoulders and neck with no obvious injury or deformity noted. Pain increases with range of motion. - Neurological Exam Neurological exam: Present: CN II-XII intact, oriented X3, no focal deficits. Absent: pronater drift, facial droop, speech deficit - Skin Skin exam: Present: dry, intact - Patient Status Disposition: Home, Self-Care Condition: Good Functional capacity at discharge: uses cane/walker Overall status at discharge: patient is progressing back to baseline - Discharge Instructions Follow Up With: Jason Perea MD [Primary Care Provider] - - Diet and Activity Activity: ambulate only with your walker, as per physical therapy, increase activity as tolerated Diet: diabetic diet, low fat, low cholesterol, low salt diet
[2018-12-14] MEDS ORDERED: Furosemide 40 MG TABLET PO ONE (10:50)
[2018-12-14 11:16] LABS: Bilirubin,Urine Negative (Negative); Blood,Urine Large (Negative); Clarity,Urine Slightly Cloudy (Clear); Color,Urine Amber (Yellow); Glucose,Urine (UA) Normal (Normal); Ketones,Urine Negative (Negative); Leukocyte Esterase,Urine Trace (Negative); Nitrite,Urine Negative (Negative); PH,Urine 6.5 pH Units (5.0-8.0); Protein,Urine >=300 mg/dL (Neg-Trace); Specific Gravity,Urine 1.025 (1.010-1.025); Urobilinogen,Urine Normal (Normal)
[2018-12-14 12:26] LABS: RBC,Urine TNTC per hpf (0-3)
[2018-12-14 17:36] LABS: Alpha 2 Globulin (PEP) 0.93 g/dL (0.48-1.05); Beta Globulin (PEP) 0.71 g/dL (0.48-1.10)
[2018-12-15 10:09] LABS: IFE Reflexed IFE Done; Immunoglobulin A 228 mg/dL (68-408); Immunoglobulin G 815 mg/dL (768-1632); Immunoglobulin M 114 mg/dL (35-263)
== END 2018-12-14 14:40 | disposition home or self-care (01) | DRG 546 ==
LOC: INPGRE 12-09 18:19